=== PATIENT | male | born 1940 | race Caucasian/White ===

== ENCOUNTER 2017-05-18 15:38 | Inpatient (IN) | payer MEDICARE ==
[~2017-05-18] VITALS: Ht 175.3 cm; Wt 104.3 kg
[~2017-05-18 15:38] MED LIST: AMLODIPINE5 MG PO; ASPIRIN 8181 MG PO; ASPIRIN81 MG PO; ATORVASTATIN CA80 MG PO; BACTRIM DS1 TAB PO; BENAZEPRIL HCL20 MG PO; BENAZEPRIL10 MG PO; BENAZEPRIL20 MG PO; BENAZEPRIL40 MG OR; BLOOD GLUCOSE TEST S SC; CEPH500C57 OR; CIPROFLOXACN500 MG PO; GABAPENTIN300 MG PO; GLIPIZIDE5 M2 PO; INDOCIN50 MG/CAP PO; KEFLEX500 MG PO; LANCETS 30G30 G SC; LORTAB5 PO; MAXZIDE OR; MAXZIDE PO; MAXZIDE-2537.5 MG/TA PO; MAXZIDE-25MG1 COMBO PO; METFORMIN HCL500 M1 PO; METFORMIN500 M2 PO; METOPROL TAR25 MG PO; MONITOR SC; NORVASC5 MG OR; NYSTATIN100000 M1 PO; PERCOCET 5/325M1 TAB OR; PRAVACHOL40 MG OR; PRAVASTATIN SOD40 MG PO; TRULICITY0.75 MG/0. SC
[2017-05-24] VITALS (8 sets, daily range): BP systolic 122–144; BP diastolic 68–85
[2017-05-24] MEDS ORDERED: VICTOZA18 MG/3 ML SC (06:43)
[2017-05-24 07:27] LABS: HEMATOCRIT 39.1 % (39.0-50.0); HEMOGLOBIN 13.5 g/dl (14.0-18.0); IMMATURE GRANULOCYTES 0.2 % (0.0-1.0); MEAN CELL VOLUME 93.5 fL CALC (80.0-100.0); MEAN CORPUSCULAR HGB 32.3 pG CALC (26.0-32.0); MEAN CORPUSCULAR HGB CONC 34.5 g/L CALC (32.0-36.0); NEUT# 2.95 thou/uL (1.82-7.42); RED BLOOD COUNT 4.18 mill/uL (4.70-6.10); RED CELL DISTRI WIDTH 12.7 % (11.5-15.5)
[2017-05-24 07:58] LABS: ACT PARTIAL THROMBO TIME 26.6 SECONDS (20.0-32.5); PROTHROMBIN TIME 10.6 SECONDS (9.0-12.5)
--- NOTE | 2017-05-24 12:45 | NUR ---
FROM OR VIA BED ACCOMPANIED BY MANAN GALDAMEZ. RESPS EVEN AND UNLABORED ON O2 VIA NC. RIGHT ARM IN SLING, DRESSING TO RIGHT SHOULDER CDI. SCD'S TO BILAT LOWER EXTREMITIES. DENIES PAIN OR DISCOMFORT. ICE CHIPS OFFERED. ORIENTED TO ROOM AND CALL SYSTEM. SAFETY PRECAUTIONS REINFORCED. BED IN LOWEST POSITION WITH WHEELS LOCKED. CALL LIGHT WITHIN REACH. ENCOURGAED PT TO CALL FOR ANY NEEDS.
--- NOTE | 2017-05-24 16:00 | NUR ---
RESTING IN SEMI FOWLERS. RESPS EVEN AND UNLABORED ON O2 VIA NC. DRESSING TO RIGHT SHOULDER CDI, SLING IN PLACE TO RIGHT ARM. ICE PACK TO RIGHT SHOULDER. SCD'S TO BILAT LOWER EXTREMITIES. DENIES PAIN OR DISCOMFORT. FAMILY AT BEDSIDE. CALL LIGHT WITHIN REACH. WILL CONTINUE TO MONITOR.
--- NOTE | 2017-05-24 19:50 | NUR ---
PT RESTING IN BED WITH FAMILY AT BEDSIDE. PT DENIES ANY PAIN OR DISCOMFORT. RESP EVEN AND UNLABORED WITH O2 IN PLACE. ABD DISTENDED,SOFT; HYPOACTIVE BOWEL SOUNDS NOTED. SCD'S ON. PEDAL PULSES PALPATED BILAT. RIGHT SHOULDER DRESSING CDI; NO S&S OF INFECTION. SLING IN PLACE. IV LAC PATENT; NO REDNESS OR EDEMA NOTED. INCENTIVE SPIROMETER BROUGHT TO PT, PT EDUCATED ON USE. PT RETURNED DEMONSTRATION. SAFETY PRECAUTIONS REINFORCED. FREQUENT ROUNDS MADE. CALL LIGHT WITHIN REACH.
[2017-05-25 00:20] VITALS: BP 149/86
--- NOTE | 2017-05-25 00:30 | NUR ---
DRESSING CDI; SLING IN PLACE. PT DENIES ANY PAIN OR DISCOMFORT. RESP EVEN AND UNLABORED WITH O2 IN PLACE. IV PATENT; NO REDNESS OR EDEMA NOTED. SAFETY PRECAUTIONS REINFOCED. CALL LIGHT WITHIN REACH.
[2017-05-25 04:27] VITALS: BP 150/79
--- NOTE | 2017-05-25 04:45 | NUR ---
PT DENIES ANY PAIN OR DISCOMFORT. RIGHT SHOULDER DRESSING CDI; SLING IN PLACE. SAFETY PRECAUTIONS REINFORCED. CALL LIGHT WITHIN REACH.
[2017-05-25 05:09] LABS: HEMATOCRIT 37.1 % (39.0-50.0); HEMOGLOBIN 12.9 g/dl (14.0-18.0)
[2017-05-25 05:13] LABS: HEMATOCRIT 37.4 % (39.0-50.0); HEMOGLOBIN 12.8 g/dl (14.0-18.0); IMMATURE GRANULOCYTES 0.4 % (0.0-1.0); MEAN CELL VOLUME 94.4 fL CALC (80.0-100.0); MEAN CORPUSCULAR HGB 32.3 pG CALC (26.0-32.0); MEAN CORPUSCULAR HGB CONC 34.2 g/L CALC (32.0-36.0); NEUT# 9.74 thou/uL (1.82-7.42); RED BLOOD COUNT 3.96 mill/uL (4.70-6.10); RED CELL DISTRI WIDTH 12.7 % (11.5-15.5)
[2017-05-25 05:31] LABS: ANION GAP 18 (6-22 (CALC)); BUN 21 mg/dL (8-23); BUN/CREATININE RATIO 21 (12-20 (CALC)); CARBON DIOXIDE 21 mmol/l (22-30); CHLORIDE 105 mmol/l (95-108); GFR > 60 ML/MIN (>=60 (CALC)); GFR FOR AFR.AMER. > 60 ML/MIN (>=60 (CALC)); MAGNESIUM 1.4 mg/dL (1.6-2.3); POTASSIUM 3.8 mmol/l (3.5-5.1); SODIUM 139 mmol/l (137-146)
--- NOTE | 2017-05-25 07:00 | NUR ---
RECEIVED BEDSIDE REPORT FROM DARVIN HENDRICKSON. IN HIGH FOWLERS WATCHING TV. RESPS EVEN AND UNLABORED ON O2 VIA NC. RIGHT ARM IN SLING, DRESSING TO RIGHT SHOULDER CDI. SCD'S TO BILAT LOWER EXTREMITIES. DENIES PAIN OR DISCOMFORT. PLAN OF CARE DISCUSSED. SAFETY PRECAUTIONS REINFORCED. BED IN LOWEST POSITION WITH WHEELS LOCKED. CALL LIGHT WITHIN REACH. ENCOURAGED PT TO CALL FOR ANY NEEDS.
[2017-05-25 07:54] VITALS: BP 142/72
[2017-05-25 08:39] VITALS: BP 142/72
--- NOTE | 2017-05-25 11:00 | NUR ---
REFEUSED MAGNESIUN SULFATE 4GM IV, DOES "NOT BLANCO TO BE HERE ANOTHER 4 HOURS. GIVE ME A PILL." DENA ALVARES NOTIFIED.
--- NOTE | 2017-05-25 13:03 | NUR ---
AMBULATING IN HALLWAY WITH STEADY GAIT ACCOMPANIED BY FAMILY. TOLERATING ACTIVITY WITHOUT DIFFICULTY.
--- NOTE | 2017-05-25 13:15 | NUR ---
DR RENEE AT BEDSIDE, NEW ORDERS RECEIVED.
[2017-05-25] MEDS ORDERED: PERCOCET 10/31 COMBO PO (13:30)
--- NOTE | 2017-05-25 13:51 | NUR ---
IV site discontinued, cath intact. No edema , no redness, voices no discomfort.
--- NOTE | 2017-05-25 14:02 | NUR ---
Discharge instructions given. Patient verbalizes understanding of same. Discharged in stable condition via Wheelchair to Home with family. All belongings sent with pt.
== END 2017-05-25 14:04 | disposition home health service (06) | DRG 483 ==
LOC: MS2 05-24 06:23
PROVIDERS: Nurse Anesthetist, Certified Registered; Nurse Practitioner Family; ADMIT Orthopaedic Surgery; ATTEND Internal Medicine
PROC: 0RRJ00Z Replacement of Right Shoulder Joint with Reverse Ball and Socket Synthetic Substitute, Open Approach (ICD-10-PCS; principal; 2017-05-24)
PROC: 0LS30ZZ Reposition Right Upper Arm Tendon, Open Approach (ICD-10-PCS; 2017-05-24)
DX: M19.011 Primary osteoarthritis, right shoulder (principal); S46.211A Strain of muscle, fascia and tendon of other parts of biceps, right arm, initial encounter; E11.40 Type 2 diabetes mellitus with diabetic neuropathy, unspecified; E83.42 Hypomagnesemia; M75.121 Complete rotator cuff tear or rupture of right shoulder, not specified as traumatic; I10 Essential (primary) hypertension; I25.10 Atherosclerotic heart disease of native coronary artery without angina pectoris; M10.9 Gout, unspecified; E78.5 Hyperlipidemia, unspecified; X58.XXXA Exposure to other specified factors, initial encounter; Z95.1 Presence of aortocoronary bypass graft; Z87.891 Personal history of nicotine dependence
CPT/HCPCS: J3475

== ENCOUNTER → 2018-04-07 | Outpatient (REF) ==
[~2018-04-07] MED LIST changes: +PERCOCET 10/31 COMBO PO; +VICTOZA18 MG/3 ML SC
== END | disposition home or self-care (01) | DRG 951 ==
LOC: INF 08:53 → LAB 08:53
PROVIDERS: ATTEND Internal Medicine
DX: Z01.812 Encounter for preprocedural laboratory examination (principal)

== ENCOUNTER → 2018-04-07 | Outpatient (REF) | payer MEDICARE | END | disposition home or self-care (01) | LOC: DI 08:59 | PROVIDERS: ATTEND Internal Medicine | DX: Z01.810 Encounter for preprocedural cardiovascular examination (principal) ==

== ENCOUNTER 2020-02-23 15:14 | Inpatient (IN) | payer MEDICARE ==
[~2020-02-23] VITALS: Ht 175.3 cm; Wt 101.0 kg
[2020-02-23 16:14] LABS: HEMATOCRIT 29.8 % (39.0-50.0); HEMOGLOBIN 9.1 g/dl (14.0-18.0); IMMATURE GRANULOCYTES 0.8 % (0.0-5.0); MEAN CELL VOLUME 79.3 fL CALC (80.0-100.0); MEAN CORPUSCULAR HGB 24.2 pG CALC (26.0-32.0); MEAN CORPUSCULAR HGB CONC 30.5 g/dL CAL (32.0-36.0); NEUT# 10.8 thou/uL (1.82-7.42); RED BLOOD COUNT 3.76 mill/uL (4.70-6.10); RED CELL DISTRI WIDTH 15.9 % (11.5-15.5)
[2020-02-23 16:27] LABS: ALBUMIN 3.8 g/dL (3.2-5.0); ALKALINE PHOSPHATASE 141 u/l (38-126); ANION GAP 20 (6-22 (CALC)); BILIRUBIN, TOTAL 0.8 mg/dL (0.0-1.4); CARBON DIOXIDE 20 mmol/l (22-30); CHLORIDE 99 mmol/l (95-108); POTASSIUM 4.9 mmol/l (3.5-5.1); SODIUM 133 mmol/l (137-146); TOTAL PROTEIN 8.1 g/dL (6.3-8.2)
[2020-02-23 16:33] LABS: BUN 73 mg/dL (8-23); BUN/CREATININE RATIO 26 (12-20 (CALC)); CREATININE 2.8 mg/dL (0.7-1.3); GFR 22 ML/MIN (>=60 (CALC)); GFR FOR AFR.AMER. 27 ML/MIN (>=60 (CALC)); SGOT/AST 37 u/l (19-48)
[2020-02-23 16:35] LABS: ACT PARTIAL THROMBO TIME 30.8 SECONDS (20.0-32.5); PROTHROMBIN TIME 10.4 SECONDS (9.0-12.5)
[2020-02-23 17:57] LABS: URINE BILIRUBIN - DIPSTICK NEGATIVE (NEGATIVE); URINE BLOOD DIPSTICK NEGATIVE (NEGATIVE); URINE COLOR YELLOW; URINE GLUCOSE - DIPSTICK NEGATIVE (NEGATIVE); URINE KETONE NEGATIVE (NEGATIVE); URINE LEUK ESTERASE NEGATIVE (NEGATIVE); URINE NITRITE - DIPSTICK NEGATIVE (Negative); URINE PROTEIN - DIPSTICK NEGATIVE (NEG-TRACE); URINE UROBILINOGEN - DIPSTICK 0.2 E.U./dL (0.2)
[2020-02-23 19:37] VITALS: BP 126/48
[2020-02-24 00:30] VITALS: BP 117/66
[2020-02-24 04:25] VITALS: BP 106/60
[2020-02-24] MEDS ORDERED: LOSARTAN POTASS50 MG PO (07:49)
[2020-02-24] MEDS ORDERED: TRAMADOL HCL50 MG PO (07:49)
[2020-02-24] MEDS ORDERED: ATORVASTATIN CA80 MG PO (07:50)
[2020-02-24] MEDS ORDERED: LOPRESSOR25 MG PO (07:50)
[2020-02-24] MEDS ORDERED: GABAPENTIN100 MG PO (07:50)
[2020-02-24] MEDS ORDERED: BENAZEPRIL40 M1 PO (07:50)
[2020-02-24] MEDS ORDERED: MAXZIDE-25MG1 COMBO PO (07:51)
[2020-02-24 07:52] VITALS: BP 124/63
[2020-02-24 09:54] LABS: HEMATOCRIT 26.9 % (39.0-50.0); IMMATURE GRANULOCYTES 0.4 % (0.0-5.0); MEAN CELL VOLUME 79.6 fL CALC (80.0-100.0); MEAN CORPUSCULAR HGB 23.7 pG CALC (26.0-32.0); MEAN CORPUSCULAR HGB CONC 29.7 g/dL CAL (32.0-36.0); NEUT# 5.51 thou/uL (1.82-7.42); RED BLOOD COUNT 3.38 mill/uL (4.70-6.10); RED CELL DISTRI WIDTH 15.9 % (11.5-15.5)
[2020-02-24 10:20] LABS: BILIRUBIN, TOTAL 0.5 mg/dL (0.0-1.4); POTASSIUM 4.7 mmol/l (3.5-5.1)
[2020-02-24 10:21] LABS: CREATININE 1.5 mg/dL (0.7-1.3); TOTAL PROTEIN 6.4 g/dL (6.3-8.2)
[2020-02-24 11:08] VITALS: BP 108/61
[2020-02-24 14:37] VITALS: BP 133/70
[2020-02-24] MEDS ORDERED: ATORVASTATIN CA40 MG PO (14:37)
[2020-02-24] MEDS ORDERED: CEFDINIR300 MG PO (14:38)
== END 2020-02-24 15:06 | disposition home or self-care (01) | DRG 872 ==
LOC: ED 15:14 → MS2 18:30
PROVIDERS: Nurse Practitioner; Student in an Organized Health Care Education/Training Program; ADMIT Internal Medicine; ATTEND Internal Medicine
DX: A41.9 Sepsis, unspecified organism (principal); N17.9 Acute kidney failure, unspecified; E87.2 Acidosis; M25.462 Effusion, left knee; D64.9 Anemia, unspecified; R65.20 Severe sepsis without septic shock; I10 Essential (primary) hypertension; E11.40 Type 2 diabetes mellitus with diabetic neuropathy, unspecified; E78.5 Hyperlipidemia, unspecified; E78.00 Pure hypercholesterolemia, unspecified; M10.9 Gout, unspecified; Z20.822 Contact with and (suspected) exposure to COVID-19; Z79.891 Long term (current) use of opiate analgesic; Z79.899 Other long term (current) drug therapy; Z88.7 Allergy status to serum and vaccine; Z95.1 Presence of aortocoronary bypass graft; Z98.42 Cataract extraction status, left eye; Z98.41 Cataract extraction status, right eye; Z96.1 Presence of intraocular lens
CPT/HCPCS: Q0138

== ENCOUNTER 2020-03-04 13:59 | Inpatient (IN) | payer MEDICARE ==
[~2020-03-04] VITALS: Ht 175.3 cm; Wt 107.7 kg
[~2020-03-04 13:59] MED LIST changes: +ATORVASTATIN CA40 MG PO; +BENAZEPRIL40 M1 PO; +CEFDINIR300 MG PO; +GABAPENTIN100 MG PO; +LOPRESSOR25 MG PO; +LOSARTAN POTASS50 MG PO; +TRAMADOL HCL50 MG PO
--- NOTE | 2020-03-04 14:00 | NUR ---
PT TO ROOM VIA EMS.
[2020-03-04 14:32] LABS: BASO% 0 % (0-3); EOS% 0 % (0-8); HEMATOCRIT 28.6 % (39.0-50.0); HEMOGLOBIN 8.7 g/dl (14.0-18.0); IMMATURE GRANULOCYTES 0.2 % (0.0-5.0); LYMPH% 7 % (15-41); MEAN CELL VOLUME 79.7 fL CALC (80.0-100.0); MEAN CORPUSCULAR HGB 24.2 pG CALC (26.0-32.0); MEAN CORPUSCULAR HGB CONC 30.4 g/dL CAL (32.0-36.0); MONO% 10 % (2-13); NEUT% 82 % (42-76); PLATELET COUNT 528 thou/uL (130-400); RED BLOOD COUNT 3.59 mill/uL (4.70-6.10); RED CELL DISTRI WIDTH 17.1 % (11.5-15.5)
--- NOTE | 2020-03-04 14:34 | NUR ---
RESTING QUIETLY. CALL [facility] AVAILABLE.
[2020-03-04 14:54] LABS: CHLORIDE 99 mmol/l (95-108); CREATININE 1.2 mg/dL (0.7-1.3); GFR 58 ML/MIN (>=60 (CALC)); GFR FOR AFR.AMER. > 60 ML/MIN (>=60 (CALC)); POTASSIUM 4.5 mmol/l (3.5-5.1); SODIUM 136 mmol/l (137-146); TOTAL PROTEIN 6.6 g/dL (6.3-8.2)
[2020-03-04 14:59] LABS: ALKALINE PHOSPHATASE 179 u/l (38-126); ANION GAP 15 (6-22 (CALC)); BILIRUBIN, TOTAL 0.9 mg/dL (0.0-1.4); BUN 18 mg/dL (8-23); BUN/CREATININE RATIO 15 (12-20 (CALC)); CARBON DIOXIDE 27 mmol/l (22-30); SGOT/AST 50 u/l (19-48)
--- NOTE | 2020-03-04 16:08 | NUR ---
PHYSICIAN AT BEDSIDE. PATIENT CALM. NO C/O
--- NOTE | 2020-03-04 17:00 | NUR ---
AWAITING ADMISSION. NO C/O AT PRESENT.
--- NOTE | 2020-03-04 18:43 | NUR ---
REPORT TO RUDOLPH FERNANDEZ IN SBAR FORMAT.
[2020-03-04 18:45] VITALS: BP 118/57
--- NOTE | 2020-03-04 18:58 | NUR ---
TRANSFERRED TO [place] ROOM 271 VIA STRETCHER, STABLE UPON ARRIVAL. IV SITE INTACT
--- NOTE | 2020-03-04 19:45 | NUR ---
RECEIVED REPORT FOR PT FROM RUDOLPH FERNANDEZ. PT ARRIVED TO THE FLOOR JUST PRIOR TO SHIFT CHANGE. PT ORIENTED TO UNIT, ROOM, CALL [facility]OPE[facility], LIGHTS, TV. ICE WATER PROVIDED. CALL [facility] WITHIN REACH. AGREES TO CALL PRN.
--- NOTE | 2020-03-04 20:02 | NUR ---
PHYSICAL ASSESMENT COMPLETE. PT CURRENTLY DENIES PAIN OR DISCOMFORT. SCHEDULED MEDICATIONS AND PRN MEDICATION ADMINISTERED, SEE E-MAR. PT DENIES ANY NEEDS AT THIS TIME. PLAN OF CARE REVIEWED, PT DENIES QUESTIONS, VERBALIZES UNDERSTANDING. ITEMS WITHIN REACH, BED LOCKED IN LOW POSITION W/ BEDRAILS UP X2. CALL [facility] WITHIN REACH, AGREES TO CALL PRN.
--- NOTE | 2020-03-05 00:01 | NUR ---
PT LAYING IN BED WITH EYES CLOSED, APPEARS TO BE SLEEPING, APPEARS COMFORTABLE AND IN NO DISTRESS. RESPIRATIONS REGULAR AND UNLABORED. ITEMS REMAIN WITHIN REACH, CALL [facility] REMAINS WITHIN REACH. BED REMAINS LOCKED AND IN LOW POSITION WITH BEDRAILS UP X2. WILL CONTINUE TO MONITOR.
[2020-03-05 03:48] VITALS: BP 131/71
--- NOTE | 2020-03-05 04:01 | NUR ---
PT RESTING IN BED, NO SIGNS OF DISTRESS NOTED, RESP EVEN AND UNLABORED. PT VOICES NO NEEDS OR COMPLAINTS AT THIS TIME. CALL LIGHT IN REACH, CONTINUE TO MONITOR.
[2020-03-05 07:53] VITALS: BP 123/69
--- NOTE | 2020-03-05 08:26 | NUR ---
PT note Patient is screened for intervention and he would benefit from PT consult if medical agrees
--- NOTE | 2020-03-05 09:00 | NUR ---
PT AWAKE, ALERT, ORIENTED X 3. LUNGS CLEAR, RA. PT'S LEFT KNEE IS PAINFUL AND SOMEWHAT SWOLLEN. PEDAL EDEMA BILATERALLY AT 2+.
--- NOTE | 2020-03-05 15:15 | NUR ---
S: JYOTHI PADRON is a 79 M who presents with knee pain/effusion. All medications in patient's chart were reviewed. O: VS: BP 123/69 mmHg, P 75 bpms, RR 18 breaths/min, T 97.6 W 98 kg, HT 69 in, Scr 1.2 mg/dl, CrCl 69.2 ml/min A: Cultures are pending. P: Patient is on Rocephin 2g IV q24h. Vancomycin ordered for pharmacy to dose. Start Vancomycin 1g IV Q12H. Vancomycin trough is drawn before the 4th dose on 03/07 @ 0230. Vancomycin goal trough is between 10-20 mcg/ml. Pharmacy will follow and or advise on antibiotics use as needed.
--- NOTE | 2020-03-05 15:53 | NUR ---
PT HAS BEEN DOWNSTAIRS FOR LEFT KNEE ARTHROCENTESIS, TOLERATED WELL. LATER, PT WENT TO MRI. TRAMADOL PROVIDED FOR PAIN RELIEF.
[2020-03-05 16:30] VITALS: BP 118/72
--- NOTE | 2020-03-05 17:23 | NUR ---
PT TO MRI AND BACK THIS AFTERNOON. PT WITH SOME DISCOMFORT TO LEFT KNEE, PROVIDED ULTRAM WHICH HELPED CONSIDERABLY.
[2020-03-05 19:00] VITALS: BP 128/76
[2020-03-06 03:38] VITALS: BP 112/63
[2020-03-06 06:06] LABS: HEMATOCRIT 29.6 % (39.0-50.0); MEAN CORPUSCULAR HGB 24.3 pG CALC (26.0-32.0); MEAN CORPUSCULAR HGB CONC 30.4 g/dL CAL (32.0-36.0); RED BLOOD COUNT 3.7 mill/uL (4.70-6.10); RED CELL DISTRI WIDTH 17.1 % (11.5-15.5)
[2020-03-06 06:44] LABS: ANION GAP 15 (6-22 (CALC)); BUN 24 mg/dL (8-23); BUN/CREATININE RATIO 24 (12-20 (CALC)); CARBON DIOXIDE 23 mmol/l (22-30); CHLORIDE 101 mmol/l (95-108); GFR > 60 ML/MIN (>=60 (CALC)); GFR FOR AFR.AMER. > 60 ML/MIN (>=60 (CALC)); MAGNESIUM 1.9 mg/dL (1.6-2.3); POTASSIUM 4.4 mmol/l (3.5-5.1); SODIUM 134 mmol/l (137-146)
[2020-03-06 07:34] VITALS: BP 127/61
--- NOTE | 2020-03-06 07:34 | NUR ---
PT LAYING IN BED. A&O X3. NO DISTRESS NOTED. PT DENIES ANY PAIN AT THIS TIME, 0/10 . "LT KNEE LOOKS BETTER COMPARED TO YESTERDAY" PER PT. NO REDNESS NOTED AT THIS TIME. ASSESSMENT COMPLETED. DISCUSSED POC. CALL LIGHT IN REACH. CONTINUE TO MONITOR.
--- NOTE | 2020-03-06 08:56 | NUR ---
DR CUNHA AND Lan AYOUB AUTOMATION AND CONTROLS MANAGER AT BEDSIDE DISCUSSING POC
--- NOTE | 2020-03-06 11:50 | NUR ---
PT SITTING IN BED WATCHING TV. NO DISTRESS OR NEEDS. CALL LIGHT LEFT WITHIN REACH.
[2020-03-06 15:00] VITALS: BP 118/55
--- NOTE | 2020-03-06 16:50 | NUR ---
PT SITTING IN BED WATCHING TV. NO DISTRESS NOTED. CALL LIGHT WITHIN REACH.
[2020-03-06 18:35] VITALS: BP 135/72
--- NOTE | 2020-03-06 19:35 | NUR ---
RECEIVED CHANGE OF SHIFT REPORT FROM LORENZO, CARE OF PATIENT ASSUMED.
--- NOTE | 2020-03-06 20:00 | NUR ---
PT A&O X 3 LAYING IN BED, WATCHING TV. ASSESSMENT COMPLETE, POC DISCUSSED. NO S/SX OF DISCOMFORT OR DISTRESS OBSERVED AT THIS TIME. PT IS REQUESTING A SNACK, PAIN MED & SLEEPING PILL WITH 2100 MEDS- WILL MEDICATED PER MD ORDERS. ALL SAFETY MEASURE IN PLACE, BED IN LOWEST POSITION WITH WHEELS LOCKED AND UPPER SIDE RAILS UP X 2 AND CALL LIGHT WITHIN REACH. PT INSTRUCTED TO CALL FOR ANY NEEDS/ASSISTANCE. WILL CONTINUE TO MONITOR.
--- NOTE | 2020-03-07 | NUR ---
PT IS LAYING IN BED TRYING TO SLEEP BUT UNABLE TO, DENIES HAVING ANY PAIN OR DISCOMFORT AT THIS TIME BUT AFTER FURTHER CONVERSING WITH PT- IT APPEARS HE IS ANXIOUS/ WORRIED ABOUT HIS . HE IS HER CAREGIVE AND SHE IS AT HOME HOME WITH THEIR SON BUT SHE HAS A H/O DEMENTIA AND HE IS JUST WORRIED ABOUT HER AND WANTS TO BE HOME WITH HER. PROVIDED PT WITH EMOTIONAL SUPPORT AND ENCOURGED HIM TO GET SOME REST. WILL CONTINUE TO MONITOR.
[2020-03-07 02:46] LABS: HEMATOCRIT 28.7 % (39.0-50.0); HEMOGLOBIN 8.5 g/dl (14.0-18.0); IMMATURE GRANULOCYTES 0.6 % (0.0-5.0); MEAN CELL VOLUME 80.6 fL CALC (80.0-100.0); MEAN CORPUSCULAR HGB 23.9 pG CALC (26.0-32.0); MEAN CORPUSCULAR HGB CONC 29.6 g/dL CAL (32.0-36.0); NEUT# 7.92 thou/uL (1.82-7.42); RED BLOOD COUNT 3.56 mill/uL (4.70-6.10); RED CELL DISTRI WIDTH 17.2 % (11.5-15.5)
--- NOTE | 2020-03-07 03:00 | NUR ---
PT CALLED FOR ASSISTANCE AFTER NOTICING A SMALL AMOUNT OF BLOOD ON URINAL, PT DENIES NOTICING ANY BLEEDING PRIOR AND DENIES ANY PAIN, BURNING, OR FREQUENCY WITH URINATION AT THIS TIME, NO OPEN AREAS OR ACTIVE BLEED NOTED DURING INSPECTION, PT BELIEVES HE MAY HAVE IRRIATED OR CAUSED TRAMA TO THE AREA WITH THE EDGE OF THE URINAL WHILE VOIDING, WILL MONITOR AREA. .
[2020-03-07 03:05] LABS: BUN 27 mg/dL (8-23); GFR FOR AFR.AMER. > 60 ML/MIN (>=60 (CALC))
[2020-03-07 03:06] LABS: ALBUMIN 2.7 g/dL (3.2-5.0); ALKALINE PHOSPHATASE 177 u/l (38-126); ANION GAP 14 (6-22 (CALC)); BUN/CREATININE RATIO 27 (12-20 (CALC)); CARBON DIOXIDE 21 mmol/l (22-30); CHLORIDE 104 mmol/l (95-108); GFR > 60 ML/MIN (>=60 (CALC)); MAGNESIUM 1.9 mg/dL (1.6-2.3); SGOT/AST 37 u/l (19-48); SODIUM 135 mmol/l (137-146)
[2020-03-07 03:11] LABS: BILIRUBIN, TOTAL 0.3 mg/dL (0.0-1.4)
[2020-03-07 04:20] VITALS: BP 115/68
--- NOTE | 2020-03-07 04:26 | NUR ---
OBSERVED PT VOID, NO BLOOD OBSERVED, NO C/O PAIN , BURNING OR FREQUENCY. NO OTHER NEEDS OR CONCERNS EXPRESSED AT THIS TIME, PT JUST WANTS TO SLEEP, WILL CONTINUE TO MONITOR.
[2020-03-07 07:04] VITALS: BP 130/62
--- NOTE | 2020-03-07 07:04 | NUR ---
PT LAYING IN BED. A&O X3. NO DISTRESS NOTED. PT C/O OF PAIN WHEN TRYING TO URINATE, PT REPORTS BLOOD WHEN URINATING. UPON INSPECTION OF TOILET BLOOD NOTED, BRIGHT READ. PENIS INSPECTED, NO VISIBLE CUTS OR INJURY NOTED. MD TO BE NOTIFIED. LT KNEE DECREASED IN SWELLING, PT DENIES ANY KNEE PAIN AT THIS TIME. ASSESSMENT COMPLETED. DISCUSSED POC. CALL LIGHT LEFT WITHIN REACH.
--- NOTE | 2020-03-07 08:08 | NUR ---
BLADDER SCAN PERFORMED PER MD ORDERS, RESULTING IN 60 ML OF URINE RISIDUAL. AND Lan AYOUB APRN NOTIFIED OF RESULTS.
--- NOTE | 2020-03-07 08:27 | NUR ---
DR CUNHA AND Lan AYOUB APRN AT BEDSIDE
--- NOTE | 2020-03-07 09:58 | NUR ---
RADHA BERMUDEZ AT BEDSIDE OBTAINING EKG
--- NOTE | 2020-03-07 10:40 | NUR ---
SULLIVAN 16F CATHETER PLACED BY Ana BENNETT RN. PT TOLERATED WELL. URINE SAMPLE OBTAINED.
--- NOTE | 2020-03-07 10:46 | NUR ---
DR OTERO CONSULT IN PROGRESS
[2020-03-07 11:10] LABS: URINE BILIRUBIN - DIPSTICK NEGATIVE (NEGATIVE); URINE BLOOD DIPSTICK LARGE (NEGATIVE); URINE COLOR YELLOW; URINE GLUCOSE - DIPSTICK NEGATIVE (NEGATIVE); URINE KETONE NEGATIVE (NEGATIVE); URINE PROTEIN - DIPSTICK >=300 mg/dL (NEG-TRACE); URINE SPECIFIC GRAVITY 1.025; URINE UROBILINOGEN - DIPSTICK 0.2 E.U./dL (0.2)
[2020-03-07 11:12] LABS: URINE LEUK ESTERASE MODERATE (NEGATIVE); URINE NITRITE - DIPSTICK POSITIVE (Negative)
[2020-03-07 11:17] LABS: URINE RBC TNTC RBC/hpf (0-5); URINE WBC TNTC WBC/hpf (0-5)
--- NOTE | 2020-03-07 11:29 | NUR ---
PT REPORTS TO BE FEELING MUCH BETTER, AFEBRILE. PT SITTING UP IN CHAIR. NO CHILLS NOTED. SULLIVAN CATH DRAINING GRAVITY. CALL LIGHT LEFT WITHIN REACH.
--- NOTE | 2020-03-07 12:48 | NUR ---
PT TAKEN TO CT VIA WC
[2020-03-07 15:05] VITALS: BP 102/69
--- NOTE | 2020-03-07 17:01 | NUR ---
PT SLEEPING IN BED. NO DISTRESS NOTED. CALL LIGHT WITHIN REACH.
[2020-03-07 19:09] VITALS: BP 128/74
[2020-03-07 20:30] VITALS: BP 118/70
--- NOTE | 2020-03-07 20:48 | NUR ---
RECEIVED REPORT FOR THIS PT AND IN BED WITH EYES OPEN. TREMORS AND STATING HE FEELS CHILLED. PT NOTED TREMBLING AND HR 143. LABORED BREATHIG NOTED AT 36 BREATHS PER MINUTE. PT EDUCATED TO TAKE SLOW DEEP BREATHS AND PT COOPERATIVE. BLOOD SUGAR 571 AND O2 SAT 96% ROOM AIR. ANITHA AYOUB BEAM BUILDER HELPER HERE AT FACILY AT BEDSIDE AND NEW ORDERS FOR REGULAR INSULIN IV WELL GAVE TYLENOL ORDERED FOR TEMPT 99.2TP. STAT GLUCOSE ORDERED AND BLOOD CULTURES COLLECTED. IN BED WITH EYES OPEN. WILL CONTINUE TO OBSERVE
--- NOTE | 2020-03-07 21:40 | NUR ---
MADE AWARE OF LACTIC ACID OF 8.2. NEW ORDER FOR 1 LITER NORMAL SALINE 0.9% BOLUS NOW. ORDERS NOTED.
[2020-03-07 21:41] VITALS: BP 105/68
[2020-03-08 00:15] VITALS: BP 105/63
--- NOTE | 2020-03-08 00:55 | NUR ---
PT IN BED WITH EYES CLOSED. NO RESPIRATORY DISTRESS NOTED. RECHECKED ACCUCHECK AND 130.PT IS EASILY AROUSED. RECEIVED 1L BOOLUS 0.9% NS FOR LACTIC ACID OF 8.2.RECHECKED LACTIC ACID LEVEL AND 4.8. GAVE 2ND LITER 0.9% NS PER MD ORDER. HOB ELEAVED. CALLLIGHT WITHIN REACH. WILL CONTINUE TO OBSERVE.
[2020-03-08 02:00] VITALS: BP 110/66
--- NOTE | 2020-03-08 02:00 | NUR ---
PT IN BED WITH EYES CLOSED. NO S/S OF DISTRESS NOTED. EASILY AROUSED. SKIN COLOR NORMAL AND CAPILLARYREFILLESS THAN 3. PT STATES HE FEELS BETTER. AFEBRILE.NO S/S OF HYPO/HYPERGLYCEMIA. SULLIVAN DRAINING VALENTIN COLORED URINE WITH SEDIMENT NOTED AND ODOR. NORMAL SALINE RUNNING AT 75ML/HR AND TOLERATING WELL. CALL LIGHT WITHIN REACH. WILL CONTINUE TO OBSERVE.
[2020-03-08 04:05] VITALS: BP 107/62
--- NOTE | 2020-03-08 04:52 | NUR ---
PTIN BED WITH NO S/S OF DISTRESS NOTED. RESPIRATION EVEN AND NON LABORED. NONPRODUCTIVE COUGH NOTED. LUNGS SOUNDS ARE DIMINISHED. PT REPOSITNED IN BED. NORMAL SALINE RUNNING AT 75ML/HR AND TOLERATING WELL. CALLLIGTH WITHIN REACH. WILL CONTINUE TO OBSERVE
[2020-03-08 05:35] LABS: HEMOGLOBIN 7.4 g/dl (14.0-18.0); MEAN CELL VOLUME 81.7 fL CALC (80.0-100.0); MEAN CORPUSCULAR HGB 24.2 pG CALC (26.0-32.0); MEAN CORPUSCULAR HGB CONC 29.6 g/dL CAL (32.0-36.0); RED BLOOD COUNT 3.06 mill/uL (4.70-6.10); RED CELL DISTRI WIDTH 17.5 % (11.5-15.5)
[2020-03-08 05:46] LABS: ANION GAP 10 (6-22 (CALC)); BUN 26 mg/dL (8-23); BUN/CREATININE RATIO 24 (12-20 (CALC)); CARBON DIOXIDE 23 mmol/l (22-30); CHLORIDE 105 mmol/l (95-108); CREATININE 1.1 mg/dL (0.7-1.3); GFR > 60 ML/MIN (>=60 (CALC)); GFR FOR AFR.AMER. > 60 ML/MIN (>=60 (CALC)); MAGNESIUM 1.8 mg/dL (1.6-2.3); POTASSIUM 4.6 mmol/l (3.5-5.1); SODIUM 133 mmol/l (137-146)
[2020-03-08 07:48] VITALS: BP 126/58
--- NOTE | 2020-03-08 07:48 | NUR ---
RECIEVED REPORT FROM RUDOLPH KHAN. PT RESTING IN SEMI FOWLERS POSITION UPON ENTERING ROOM. INTRODUCED SELF TO PT AND DISCUSSED POC. PT IS A/O X3. ASSSESSMENT AND VITALS COMPLETED. RESPIRATIONS ARE EVEN AND UNLABORED ON 2L NC, O2 SAT 96%. HEART RHYTHM NORMAL. BOWEL SOUNDS ARE ACTIVE IN ALL QUADRANTS, LAST REPORTED BM 03/07/20. RADIAL AND PEDAL PULSES STRONG. #20G IN LACC INFUSING WITH NORMAL SALINE PER ORDERED, SITE APPEARS HEALTHY AND PATENT.SKIN INTACT WITH NO BREAK DOWN NOTED. TRACE EDEMA TO BLE NOTED.SULLIVAN CATHATER IN PLACE, MINIMAL VALENTIN CLOUDY URINE NOTED. TUBING UNOBSTRUCTED. PT DENIES OF ANY PAINS OR DISCOMFORTS. WILL CONTINUE TO MONITOR.
--- NOTE | 2020-03-08 08:32 | NUR ---
DR RENEE AT BEDSIDE DICUSSING POC
--- NOTE | 2020-03-08 10:31 | NUR ---
INFECTION DISEASE CONSULT COMPLETED.
--- NOTE | 2020-03-08 10:51 | NUR ---
S: JYOTHI PADRON is a 79 M who presents with sepsis. He has a history of diabetes, hypertension, hyperlipidemia, neuropathy, gout. All medications in patient's chart were reviewed. O: VS: BP 126/58 mmHg, P 69 bpm, RR 18 breaths per min,T 97.4 F W 98.033 kg, HT 69 in, Scr= 1.1 mg/dL, CrCl= 62 ml/min A: Blood culture is pending. Urine culture shows Escherichia coli, sensitivity is pending. P: Patient is on cefepime 2 g Q12H. Vancomycin ordered for pharmacy to dose. Start Vancomycin 1 g IV Q12H. Vancomycin trough is drawn before the 4th dose on 03/09/20 @ 2030. Vancomycin goal trough is between 15-20 mcg/ml. Pharmacy will follow and or advise on antibiotics use as needed.
--- NOTE | 2020-03-08 11:39 | NUR ---
PT RESTING IN SEMI FOWLERS POSITION. RESPIRATIONS ARE EVEN AND UNLABORED ON 2L NC. NO SIGNS OF DISTRESS NOTED. SULLIVAN CATHATER IN PLACE, TUBING PATENT. ANTIBIOTICS INFUSING WITH EASE, SITE REAMINS HEALTHY AND PATENT. PT DENIES OF ANY PAINS OR DISCOMFORTS. ALL SAFETY PRECAUTIONS ARE IN PLACE WITH CALL LIGHT IN REACH. WILL CONTINUE TO MONITOR.
[2020-03-08 15:22] VITALS: BP 118/60
--- NOTE | 2020-03-08 15:28 | NUR ---
BREW HOUSE SUPERVISOR AT BEDSIDE
--- NOTE | 2020-03-08 16:58 | NUR ---
PT RESTING IN SEMI FOWLERS POSITION. RESPIRATIONS ARE EVEN AND UNLABORED. IVF INFUSING PER ORDER, SITE APPEARS HEALTHY AND PATENT. PT COMPLAINS OF 5/10 PAIN IN LEFT KNEE, ULTRAM TO BE ADMINISTERED. SULLIVAN CATHATER IN PLACE, TUBING APPEARS PATENT. PT DENIES OF ANY OTHER NEEDS AT THIS TIME. ALL SAFETY PRECAUTIONS ARE IN PLACE WITH CALL LIGHT IN REACH. WILL CONTINUE TO MONITOR
[2020-03-08 20:00] VITALS: BP 105/60
--- NOTE | 2020-03-08 20:00 | NUR ---
REPORT RECEIVED. ASSESSMENT COMPLETE. SAFETY MEASURES IN PLACE. CALL LIGHT WITHIN REACH.
--- NOTE | 2020-03-09 | NUR ---
PT LAYING IN BED SLEEPING, NO S/SX OF DISTRESS OR DISCOMFORT OBSERVED AT THIS TIME; RESPIRATIONS EVEN AND NON-LABORED ON ROOM AIR. SAFETY MEASURES IN PLACE, CALL LIGHT WITHIN REACH. WILL CONTINUE TO MONITOR.
[2020-03-09 04:00] VITALS: BP 115/60
[2020-03-09 05:52] LABS: ANION GAP 10 (6-22 (CALC)); BUN 26 mg/dL (8-23); BUN/CREATININE RATIO 28 (12-20 (CALC)); CARBON DIOXIDE 24 mmol/l (22-30); CHLORIDE 103 mmol/l (95-108); CREATININE 0.9 mg/dL (0.7-1.3); GFR > 60 ML/MIN (>=60 (CALC)); GFR FOR AFR.AMER. > 60 ML/MIN (>=60 (CALC)); POTASSIUM 4.5 mmol/l (3.5-5.1); SODIUM 132 mmol/l (137-146)
--- NOTE | 2020-03-09 07:45 | NUR ---
STOOL SAMPLE OBTAINED
--- NOTE | 2020-03-09 08:07 | NUR ---
RCIEVED REPORT FROM EMEKA CARUSO. PT RESTING IN SEMI FOWLERS POSITION UPON ENTERING ROOM. INTRODUCED SELF TO PT AND DICUSSED POC. PT IS A/O X3. ASSESSMENT AND VITALS COMPLETED. RESPIRATIONS ARE EVEN AND UNLABORED ON ROOM AIR. HEART RHYTHM IS NORMAL. BOWEL SOUNDS ARE ACTIVE IN ALL QUADRANTS, LAST REPORTED BM 03/09/20. RADIAL AND PEDAL PULSES ARE STRONG.#20G IN LAC INFUSING WITH NS PER ORDER, SITE APPEARS HEALTHY AND PATENT. SKIN IS WARM AND INATCT WITH NO BREAK DOWN NOTED. SULLIVAN CATHATER IN PLACE. TUBING PATENT. PT DENIES OF ANY PAINS OR DISCOMFORTS AT THIS TIME. ALL SAFETY PRECAUTIONS ARE IN PLACE WITH CALL LIGHT IN REACH. ENCOURAGED PT TO CALL FOR ASSISTANCE IF NEED. PT VERBALIZED UNDERSTANDING. WILL CONTINUE TO MONITOR
[2020-03-09 09:12] VITALS: BP 116/50
--- NOTE | 2020-03-09 11:14 | NUR ---
DR DELGADO AT BEDSIDE
--- NOTE | 2020-03-09 12:02 | NUR ---
PT RESTING IN SEMI FOWLERS POSITION. RESPIRATIONS ARE EVEN AND UNLABORED ON ROOM AIR, SAT 95%. IVF INFUSING PER ORDER, SITE APPEARS HEALTHY AND PATENT. PT DENIES OF ANY PAINS OR NEEDS. ALL SAFETY PRECAUTIONS ARE IN PLACE WITH CALL LIGHT IN REACH. WILL CONTINUE TO MONITOR.
--- NOTE | 2020-03-09 14:43 | NUR ---
NEW #20G LAC STARTED. PT TOELRATED WELL. #20G IN RAC REMOVED WITH CATHATER STILL INTACT. PT COMPLAINS OF 10/10 PAIN IN ABD, ULTRAM ADMINISTERED. PT TOLERATED WELL
--- NOTE | 2020-03-09 15:55 | NUR ---
PT COMPLAINS OF BURNING IN ABD. PT STATES " I HELPS WHEN I PUSH DOWN." BLADDER SCAN COMPLETED, RESULTING IN 37. ULTRAM ADMINISTERED, PT STATES IT HAD HELPED. NOTFIED. ORDER FOR PROTONIX 40 MG. WAITING FOR VERIFICATION
[2020-03-09 17:19] VITALS: BP 115/68
--- NOTE | 2020-03-09 17:35 | NUR ---
FINAL STOOL SAMPLE COLLECTED
--- NOTE | 2020-03-09 19:15 | NUR ---
REPORT RECEIVED. ASSESSMENT COMPLETE. SAFETY MEASURES IN PLACE. CALL LIGHT WITHIN REACH.
[2020-03-09 19:41] VITALS: BP 123/68
[2020-03-10] VITALS (9 sets, daily range): BP systolic 86–176; BP diastolic 50–134
--- NOTE | 2020-03-10 | NUR ---
PT LAYING IN BED RESTING, NO S/SX OF DISTRESS OR DISCOMFORT OBSERVED AT THIS TIME; RESPIRATIONS EVEN AND NON-LABORED ON 2L/MIN VIA NC. SAFETY MEASURES IN PLACE, CALL LIGHT WITHIN REACH. WILL CONTINUE TO MONITOR.
--- NOTE | 2020-03-10 02:30 | NUR ---
PT CALLED VIA CALL LIGHT TO REQUEST PAIN MED, UPON ENTERING ROOM OBSERVED PT EXPERIENCING S/SX OF RESPIRAPTORY DISTRESS. PT C/O SOB, BREATHING IS LABORED WITH USE OF ACCESSORY MUSCLE AND GASPING FOR AIR WHILE ATTEMPTING TO GET HIS WORDS OUT, PT WAS ALSO DIAPHORIC, SHAKING AND C/O CHILLS. RE- POSITIONED PT TO HIGH CARBALLO. VITAL SIGNS: T 97.8 BP 176/134 HR 130 RR 24 O2 SAT 89% ON 2L OXYGEN INCREASED FROM 2L TO 3L/MIN VIA NC. NEW ONSET OF COUGH & LOW URINARY OUTPUT APPROX 42ML/HR NOTED, IV FLUIDS DECREASED FROM 75ML/HR URINARY OUTPUT OF AN ESTAMATED 42ML/HR NOTED WELL, IV FLUIDS DECREASED FROM 75ML/HR TO KVO. BLOOD SUGAR CHECKED TO R/O GLYCEMIC EPISODE- RESULTS 198. PT GIVEN MORPHINE 2 MG IV & LORTAB PER MD ORDERS/ MAR FOR TREATMENT OF PAIN. STAT EKG ORDERED & OBTAIN- EKG SHOWED SINUS TACH WITH HR OF 126. DR DELGADO NOTIFED OF EPISODE- ORDERS GIVEN FOR REPEAT BLOOD CX X 2, CXR NOW, AND LASIX 20 MG IV NOW, AND MONITOR PT. VS RECHECKED BP 165/98 HR 118 RR 20 O2 SATS 96%. ANTERIOR LUNG SOUNDS CLEAR THROUGHOUT AND RESPIRATORY EFFORT HAS DECREASED TO NON-LABORED, PT STATED HE IS FEELING BETTER. SAFETY MEASURE IN PLACE, CALL LIGHT WITHIN REACH, WILL CONTINUE TO MONITOR.
--- NOTE | 2020-03-10 02:35 | NUR ---
RT AT BEDSIDE TO OBTAIN EKG.
--- NOTE | 2020-03-10 02:45 | NUR ---
XRAY AT BED SIDE TO OBTAIN CXR.
--- NOTE | 2020-03-10 04:05 | NUR ---
PT IS NOW FEBRILE TEMP 101.2, TYELNOL ADMINISTERED PER ORDERS/ MAR.
[2020-03-10 05:22] LABS: HEMATOCRIT 29.6 % (39.0-50.0); HEMOGLOBIN 8.9 g/dl (14.0-18.0); IMMATURE GRANULOCYTES 3.8 % (0.0-5.0); MEAN CELL VOLUME 80.2 fL CALC (80.0-100.0); MEAN CORPUSCULAR HGB 24.1 pG CALC (26.0-32.0); MEAN CORPUSCULAR HGB CONC 30.1 g/dL CAL (32.0-36.0); NEUT# 8.57 thou/uL (1.82-7.42); RED BLOOD COUNT 3.69 mill/uL (4.70-6.10); RED CELL DISTRI WIDTH 17.6 % (11.5-15.5)
[2020-03-10 05:44] LABS: ANION GAP 12 (6-22 (CALC)); BUN 27 mg/dL (8-23); BUN/CREATININE RATIO 26 (12-20 (CALC)); CARBON DIOXIDE 20 mmol/l (22-30); CHLORIDE 105 mmol/l (95-108); GFR > 60 ML/MIN (>=60 (CALC)); GFR FOR AFR.AMER. > 60 ML/MIN (>=60 (CALC)); POTASSIUM 4.5 mmol/l (3.5-5.1); SODIUM 132 mmol/l (137-146)
--- NOTE | 2020-03-10 07:47 | NUR ---
RECIEVED REPORT FROM EMEKA DOWNING. PT RESTING IN SEMI FOWLERS POSITION UPON ENTERING ROOM. INTRODUCED SELF TO PT AND DISCUSSED POC. PT IS A/O X3 BUT DROWSY. ASSESSESSMENT AND VITALS COMPLETED.TEMP. 99.0, TYLENOL NOT YET DUE. BP 86/57, HR 109, O2 93% ON 3L NC. RESPIRATIONS ARE SHALLOW. LUNG SOUNDS CLEAR. HEART RHYTHM NORMAL. BOWEL SOUNDS ARE ACTIVE IN ALL QUADRANTS, LAST REPORTED BM 03/09/20. RADIAL PULSES STRONG. PEDAL PULSES WEAK. #20G IN RAC INFUSING WITH IVF PER ORDER, SITE APPEARS HEALTHY AND PATENT. SKIN IS COOL AND INTACT. PT APPEARS PALE AND DIAPHERETIC. ACCU CHECK RUSULTING IN 213, COVERAGED ADMINISTERED. SULLIVAN CATHATER IN PLACE, 150 OF CLEAR YELLOW URINE EMPTIED. TUBE APPEARS PATENT. PT DENIES OF ANY PAINS OR DISCOMFORTS AT THIS TIME.ALL SAFETY PRECAUTIONS ARE IN PLACE WITH CALL LIGHT IN REACH. WILL CONTINUE TO MONITOR.
--- NOTE | 2020-03-10 07:50 | NUR ---
JORGE LUIS LAZARO NOTIFIED OF PT STATUS. NO NEW ORDERS OBTAINED. WILL CONTINUE TO MONITOR
--- NOTE | 2020-03-10 10:26 | NUR ---
REASSESSMENT OF BP RESULTING IN 97/67, HR 87. PT APPEARS LESS PALE AND DIAPHERETIC. RESPIRATIONS ARE SHALLOW, SAT 95% ON 3L NC. PT DENIES OF ANY PAINS OR DISCOMFORTS. SULLIVAN CATHATER REMAINS IN PLACE. WILL CONTINUE TO MONITOR
--- NOTE | 2020-03-10 10:28 | NUR ---
DR DELGADO AT BEDSIDE DISCUSSING POC WITH PT
--- NOTE | 2020-03-10 12:54 | NUR ---
PT SLEEPING IN SEMI FOWLERS POSITION. REPSIRATIONS ARE EVEN AND UNLABORED WITH NO DISTRESS NOTED. IVF INFUSING PER ORDER, SITE APPEARS HEALTHY AND PATENT. SULLIVAN CATHATER IN PLACE, TUBING UNKINKED FLOWING WITH GRAVITY. NO SIGNS OF ANY PAINS OR DISCOMFORTS ALL SAFTEY PRECAUTIONS ARE IN PLACE. WILL CONTINUE TO MONITOR.
--- NOTE | 2020-03-10 16:03 | NUR ---
PT SLEEPING IN SEMI FOWLERS POSITION. REPSIRATIONS ARE EVEN AND UNLABORED ON 3L NC. IVF INFUSING PER ORDER, SITE REMAINS HEALTHY AND PATENT. SULLIVAN CATHATER IN PLACE, TUBING UNKINKED, FLOWING WITH GRAVITY. PT DENIES OF ANY PAINS OR DISCOMFORTS AT THIS TIME. ALL SAFETY PRECAUTIONS ARE IN PLACE WITH CALL LIGHT IN REACH. WILL CONTINUE TO MONITOR
--- NOTE | 2020-03-10 18:25 | NUR ---
PT CALLING ASKING FOR PAIN PILL FOR ABD PAIN RESUTLING IN 11/24. PT RESPIRATIONS LABORED. VITALS OBTAINED. BP 140/80, HR 130, O2 93% ON 3L NC.ULTRAM ADMINISTERED TO ASSIST WITH PAIN.
--- NOTE | 2020-03-10 18:45 | NUR ---
RESPIRTIONS STILL LABORED. PT STATES " IT HELPS A LITTLE." DR DELGADO CALLED, ORDER FOR TORADOL X1 DOSE.
--- NOTE | 2020-03-10 19:08 | NUR ---
RESPIRATIONS SHALLOW BUT LESS LABORED. PT STATES " IT STARTING TO KICK IN." O2 95% ON 3L NC. HR 115. ALL SAFTEY PRECAUTIONS ARE IN PLACE. WILL CONTINUE TO MONITOR
--- NOTE | 2020-03-10 20:10 | NUR ---
PT ASSESSMENT COMPLETED AT THIS TIME. NO S/O DISTRESS NOTED. CALL LIGHT AND BSC AT SIDE, PT DENIES ANY NEEDS AT THIS TIME.
--- NOTE | 2020-03-11 00:33 | NUR ---
PT IS SLEEPING, NO S/O DISTRESS NOTED. LIGHTS AND TV ARE OFF. SONOROUS SOUNDS FROM PT AT THIS TIME AND RISE AND FALL OF ABD VISUALIZED.
[2020-03-11 05:00] VITALS: BP 107/60
[2020-03-11 05:34] LABS: HEMATOCRIT 25.6 % (39.0-50.0); HEMOGLOBIN 7.7 g/dl (14.0-18.0); IMMATURE GRANULOCYTES 1.4 % (0.0-5.0); MEAN CELL VOLUME 80.3 fL CALC (80.0-100.0); MEAN CORPUSCULAR HGB 24.1 pG CALC (26.0-32.0); MEAN CORPUSCULAR HGB CONC 30.1 g/dL CAL (32.0-36.0); NEUT# 10.02 thou/uL (1.82-7.42); RED BLOOD COUNT 3.19 mill/uL (4.70-6.10); RED CELL DISTRI WIDTH 17.7 % (11.5-15.5)
--- NOTE | 2020-03-11 05:46 | NUR ---
PT MEDICATED ORDERS PROVIDE. NO S/O DISTRESS NOTED AT THIS TIME. CALL LIGHT AT SIDE. PT DENIES ANY NEEDS.
[2020-03-11 05:59] LABS: ALKALINE PHOSPHATASE 134 u/l (38-126); ANION GAP 8 (6-22 (CALC)); BILIRUBIN, TOTAL 0.4 mg/dL (0.0-1.4); BUN 26 mg/dL (8-23); BUN/CREATININE RATIO 24 (12-20 (CALC)); CARBON DIOXIDE 23 mmol/l (22-30); CHLORIDE 103 mmol/l (95-108); CREATININE 1.1 mg/dL (0.7-1.3); GFR > 60 ML/MIN (>=60 (CALC)); GFR FOR AFR.AMER. > 60 ML/MIN (>=60 (CALC)); POTASSIUM 4.4 mmol/l (3.5-5.1); SGOT/AST 34 u/l (19-48); SODIUM 129 mmol/l (137-146)
[2020-03-11 06:06] LABS: TOTAL PROTEIN 4.6 g/dL (6.3-8.2)
[2020-03-11 07:36] VITALS: BP 101/57
--- NOTE | 2020-03-11 07:36 | NUR ---
PT LAYING IN BED. A&O X3.O2 VIA NC @3L IN PLACE. PT DENIES ANY SOB. C/O OF "A LITTLE BIT BUT NOT BAD ENOUGH" PAIN TO LT KNEE. SULLIVAN CATHETER IN PLACE DRAINING VIA GRAVITY. NO REDDNESS OR SWELLING TO LT KNEE NOTED. CLEAR BREATH SOUNDS UPON AUSCULTATION, WITH AUDIBLE WHEEZING WITH EXCERTION. ASSESMENT COMPLETED. DISCUSSED POC. CALL LIGHT LEFT WITHIN REACH.
--- NOTE | 2020-03-11 09:23 | NUR ---
DR DELGADO AND Lan AYOUB APRN AT BEDSIDE
--- NOTE | 2020-03-11 09:45 | NUR ---
S: JYOTHI PADRON is a 79 M who presents with SEPSIS. He has a history of ESBL UTI. All medications in patient's chart were reviewed. O: VS: BP 101/57, P 89, RR ,T 98 W 107kg,\ HT 69IN, Scr= 1.1 A: Blood culture show NO GROWTH P: Patient is on VANCO AND MERREM. Vancomycin ordered for pharmacy to dose. CONTINUE Vancomycin 1 GRAM IV Q12H. Vancomycin trough is drawn before the 4th dose on 03/11/20 @2030. Vancomycin goal trough is between 10-20 mcg/ml. Pharmacy will follow and or advise on antibiotics use as needed. DONALDO OAKESD
--- NOTE | 2020-03-11 11:50 | NUR ---
PT LAYING IN BED. NO DISTRESS NOTED. CALL LIGHT IN REACH.
--- NOTE | 2020-03-11 14:41 | NUR ---
ATTEMPTED TO EVALUATE PT. PT REFUSED DUE TO BACK PAIN. PT HAD JUST BEEN MEDICATED.
[2020-03-11 15:26] VITALS: BP 130/74
--- NOTE | 2020-03-11 17:46 | NUR ---
PT SLEEPING IN BED. NO DISTRESS NOTED. CALL LIGHT LEFT WITHIN REACH.
[2020-03-11 19:00] VITALS: BP 119/52
--- NOTE | 2020-03-11 20:10 | NUR ---
PT OBSERVED SLEEPING AT THIS TIME. NO S/O DISTRESS NOTED.
--- NOTE | 2020-03-11 21:15 | NUR ---
PT WAS SLEEPING WHEN I ENTERED THE ROOM. HE AWOKE TO MY VOICE. PT WAS MEDICATED ORDERS PROVIDE AND IV ANTIBIOTICS ADMINISTERED AT THIS TIME. IV SITE APPEARS HEALTHY AND PATENT. ATTEMPTS TO OBTAIN COVID SWAB AT THIS TIME, PT REFUSED STATING "THAT'S CRAZY I ALREADY HAD IT." I EXPLAINED TO HIM THAT SOMETIMES WE HAVE FALSE NEGATIVES EARLY IN INFECTION AND IT IS A SAFETY TO RECHECK AND CONFIRM NO INFECTION OF COVID, HE REFUSED STATING, "TELL THE DOCTOR TO KEEP HIS SWAB." ASSISTED PT REPOSITION IN BED FOR COMFORT AND LIGHTS TURNED DOWN REQUESTED. DENIES ANY OTHER NEEDS AT THIS TIME. INSTRUCTED PT TO CALL NEEDS ARISE, CALL LIGHT NEXT TO HAND, VERBALIZED UNDERSTANDING.
[2020-03-12] VITALS: BP 138/82
[2020-03-12 00:30] VITALS: BP 133/85
--- NOTE | 2020-03-12 00:30 | NUR ---
I ENTERED THE ROOM TO CHECK PT, HE APPEARED TO HAVE LABORED BREATHING AND SOUND OF WHEEZING/REPORTED FEELING SOB AND COLD. V/S ASSESSED AT THIS TIME. BP STABLE, HR ELEVATED IN 120'S FEBRILE OF 102.3 OXYGEN 85% ON PULSE OX. RESPIRATORY CALLED TO ASSESS PT. OXYGEN UP TO 6L WITH SAT LEVELS AT 97% AT THIS TIME. BLANKETS HAVE BEEN REMOVED. PT ASKED AGAIN IF WE CAN SWAB HIM FOR COVID, HE REFUSES AND HE IS ASKING FOR BLANKETS, SHEET PROVIDED FOR COMFORT. PT MEDICATED WITH TORODOL FOR FEVER AND PHYSICIAN CALLED FOR NEW ORDERS. ORDERS RECEIVED AT THIS TIME FOR MORPHINE TO BE ADMINISTERED AND NEW ORDER FOR LASIX 20MG IV 1X DOSE.
--- NOTE | 2020-03-12 00:38 | NUR ---
BREATHING IS LESS LABORED, OXYGEN SAT LEVELS ARE STABLE AT THIS TIME @97%
--- NOTE | 2020-03-12 00:49 | NUR ---
PT MEDICATED W/LASIX PER ORDERS, PT REPORTS FEELING BETTER, BREATHING IS NOT LABORED, HR 116, TEMP 101.2 DOWN FROM 102.3 IVF HAVE BEEN SLOWED TO 10CC/HR AT THIS TIME. OXYGEN TITRATED DOWN TO 5L WITH SAT LEVELS MAINTAINING @95%
[2020-03-12 04:00] VITALS: BP 92/62
--- NOTE | 2020-03-12 04:18 | NUR ---
LAB IS IN W/PT OBTAINING BLOOD DRAW. PT WAS SLEEPING, DENIES ANY NEEDS AT THIS TIME.
--- NOTE | 2020-03-12 04:50 | NUR ---
PT MEDICATED ORDERS PROVIDE. HE REPORTS FEELING BETTER, NO S/O SOB OR DISTRESS. OXYGEN SAT LEVELS 95% ON 5L.
--- NOTE | 2020-03-12 06:20 | NUR ---
OXYGEN TITRATED DOWN TO 3LNC 95% RESPIRATIONS EVEN AND UN-LABORED. LUNG SOUNDS ARE CLEAR AT THIS TIME.
[2020-03-12 06:51] LABS: HEMATOCRIT 26.2 % (39.0-50.0); HEMOGLOBIN 7.8 g/dl (14.0-18.0); MEAN CELL VOLUME 80.9 fL CALC (80.0-100.0); MEAN CORPUSCULAR HGB 24.1 pG CALC (26.0-32.0); MEAN CORPUSCULAR HGB CONC 29.8 g/dL CAL (32.0-36.0); RED BLOOD COUNT 3.24 mill/uL (4.70-6.10)
[2020-03-12 07:25] LABS: ANION GAP 11 (6-22 (CALC)); BUN 19 mg/dL (8-23); BUN/CREATININE RATIO 19 (12-20 (CALC)); CARBON DIOXIDE 23 mmol/l (22-30); CHLORIDE 101 mmol/l (95-108); GFR > 60 ML/MIN (>=60 (CALC)); GFR FOR AFR.AMER. > 60 ML/MIN (>=60 (CALC)); MAGNESIUM 1.6 mg/dL (1.6-2.3); SODIUM 130 mmol/l (137-146)
[2020-03-12 08:18] VITALS: BP 115/57
--- NOTE | 2020-03-12 08:18 | NUR ---
PT SLEEPING IN BED. AWAKENED TO COMPLETE ASSESSMENT. A&0O X3. NO DISTRESS NOTED. O2 VIA NC @2L IN PLACE. AUDIBLE WHEEZING NOTED WITH EXCERTION. TRACE EDEMA NOTED TO BLE. SULLIVAN CATHETER DRAINING VIA GRAVITY WITH CLEAR YELLOW URINE NOTED. ASSESSMENT COMPLETED. DISCUSSED POC. CALL LIGHT LEFT WITHIN REACH.
--- NOTE | 2020-03-12 09:02 | NUR ---
DR DELGADO AND Lan AYOUB DIRECTOR OF REHABILITATION AT BEDSIDE DISCUSSING POC. PER Lan AYOUB IF FEVER OCCURS BC TO BE DRAWN.
--- NOTE | 2020-03-12 09:02 | NUR ---
DR DELGADO AND Lan AYOUB APRN AT BEDSIDE
--- NOTE | 2020-03-12 11:26 | NUR ---
S: JYOTHI PADRON is a 80 M who presents with sepsis. He has a history of diabetes, hypertension, high cholesterol, and neuropathy gout. All medications in patient's chart were reviewed. O: VS: BP 115/57, P 85 bpm, RR 20 breaths/min, T 97.7 F W 107.671 kg, HT 69 in, Scr 1 mg/dl, CrCl 89.8 ml/min Vancomycin trough 03/12 @ 0830 = 21 mcg/ml A: Blood culture is pending. Urine culture show ESBL E.coli which is sensitive to meropenem. P: Patient is on meropenem 1 g IV Q8H. Vancomycin ordered for pharmacy to dose. Start Vancomycin 750 mg IV Q12H. Vancomycin trough is drawn before the 4th dose on 03/13/20 @2130. Vancomycin goal trough is between 15-20 mcg/ml. Pharmacy will follow and or advise on antibiotics use as needed.
--- NOTE | 2020-03-12 15:38 | NUR ---
PT ASSISTED BACK INTO THE BED. PT TOLERATED WELL. CALL LIGHT LEFT WITHIN REACH.
[2020-03-12 15:42] VITALS: BP 107/67
--- NOTE | 2020-03-12 17:30 | NUR ---
PT LAYING IN BED C/O GENERALIZED PAIN. PAIN MEDICATION GIVEN. CALL LIGHT LEFT WITHIN REACH.
[2020-03-12 19:00] VITALS: BP 124/67
--- NOTE | 2020-03-12 20:18 | NUR ---
PT IS SLEEPING AT THIS TIME. NO S/O DISTRESS NOTED.
--- NOTE | 2020-03-12 23:12 | NUR ---
PT MEDICATED ORDERS PROVIDE AND ASSESSMENT COMPLETED AT THIS TIME. PT REPORTS FEELING BETTER THAN PREVIOUS NIGHT AND REPORTS JUST WANTING TO GET SOME SLEEP. CALL LIGHT IS AT SIDE AND PT INSTRUCTED TO CALL NEEDS ARISE.
[2020-03-13 04:00] VITALS: BP 128/70
--- NOTE | 2020-03-13 05:30 | NUR ---
PT MEDICATED FOR FEVER, PT APPEARS ASYMPTOMAT AT THIS TIME. STATES HE FEELS OKAY. PT HAD TAKEN HIS OXYGEN WHILE SLEEPING, OXYGEN SAT LEVELS 88% ON ROOM AIR. NC REPLACED ON 2L ANS AT LEVELS ARE NOW AT 95% ON 2L
[2020-03-13 06:19] LABS: HEMATOCRIT 26.2 % (39.0-50.0); HEMOGLOBIN 7.9 g/dl (14.0-18.0); MEAN CELL VOLUME 79.4 fL CALC (80.0-100.0); MEAN CORPUSCULAR HGB 23.9 pG CALC (26.0-32.0); MEAN CORPUSCULAR HGB CONC 30.2 g/dL CAL (32.0-36.0); RED BLOOD COUNT 3.3 mill/uL (4.70-6.10); RED CELL DISTRI WIDTH 18.3 % (11.5-15.5)
[2020-03-13 06:44] LABS: BUN 20 mg/dL (8-23); BUN/CREATININE RATIO 19 (12-20 (CALC)); CHLORIDE 99 mmol/l (95-108); GFR > 60 ML/MIN (>=60 (CALC)); GFR FOR AFR.AMER. > 60 ML/MIN (>=60 (CALC)); MAGNESIUM 1.7 mg/dL (1.6-2.3); POTASSIUM 3.8 mmol/l (3.5-5.1); SODIUM 132 mmol/l (137-146)
[2020-03-13 06:46] LABS: ANION GAP 9 (6-22 (CALC)); CARBON DIOXIDE 28 mmol/l (22-30)
--- NOTE | 2020-03-13 07:30 | NUR ---
RECIEVED REPORT FROM RUDOLPH VARGAS.
[2020-03-13 08:22] VITALS: BP 110/67
--- NOTE | 2020-03-13 08:22 | NUR ---
PT RESTING IN SEMI FOWLERS POSITION. INTRODUCED SELF TO PT AND DICUSSED POC. PT IS A/O X3. ASSESSMENT AND VITALS COMPLETED. BP 110/67, HR /81, O2 97% ON ROOM AIR. RESPIRATIONS ARE EVEN AND UNLABORED ON 2L NC. HEART RHYTHM IS NORMAL. BOWEL SOUND SARE ACTIVE IN ALL QUADRANTS, LAST REPORTED BM 03/12/20. RADIAL PULSES STRONG. PEDAL PULSES WEAK.SKIN IS WARMA DN INTACT WITH NO BREAKDOWN NOTED. #20G IN RAC INFUSING WITH IVF PER ORDER,SITE APPEARS HEALTHY AND PATENT. SULLIVAN CATHATER IN PLACE, 450 OF CLOUDY YELLOW URINE EMPTIED. PT DENIES OF ANY PAINS OR DISCOMFORTS. ALL SAFETY PRECAUTIONS ARE IN PLACE WITH CALL LIGHT IN REACH. WILL CONTINUE TO MONITOR.
--- NOTE | 2020-03-13 08:22 | NUR ---
RECIEVED REPORT FROM RUDOLPH VARGAS. PT RESTING IN SEMI FOLWERS POSITION UPON ENTERING ROOM. INTRODUCED SELF TO PT AND DISCUSSED POC. PT IS A/O X3. ASSESSMENT AND VITALS COMPLETED. BP 110/67, HR 81, O2 97% ON 2L NC. RESPIRATIONS ARE SHALLOW. LUNG SOUNDS CLEAR. HEART RHYTHM NORMAL. BOWEL SOUNDS ARE ACTIVE IN ALL QUADRANTS, LAST RPORTED BM 03/09/20. RADIAL PULSES STRONG. PEDAL PULSES WEAK. #20G IN RAC INFUSING WITH IVF PER ORDER, SITE APPEARS HEALTHY AND PATENT. SKIN IS WAMR AND INTACT WITH NO BREAKDOWN NOTED.SULLIVAN CATHATER IN PLACE, TUBING PATENT. PT DENEIS OF ANY PAINS. ALL SAFETY PRECAUTIONS ARE IN PLACE WITH CALL LIGHT IN REACH. WILL CONTINUE TO MONITOR.
--- NOTE | 2020-03-13 09:56 | NUR ---
KARINE FROM DR SCALES OFFICE AT BEDSIDE
--- NOTE | 2020-03-13 12:37 | NUR ---
RAILROAD CARMAN ASSISTED PT INTO CHAIR. RESPIRATIONS SHALLOW ON 2L NC. SULLIVAN CATHATER IN PLACE, TUBING PATENT. #20G IN RAC INFUSING WITH IVF PER ORDER, SITE APPEARS HEALTHY AND PATENT. PT DENIES OF ANY PAINS OR DISCOMFORTS. ALL SAFETY PRECAUTIONS ARE IN PLACE WITH CALL LIGHT IN REACH. WILL CONTINUE TO MONITOR.
--- NOTE | 2020-03-13 15:46 | NUR ---
PT SLEEPING IN SEMI FOWLERS POSITIONS. RESPIRATIONS ARE EVEN AND UNLABORED ON 2L HECTOR. SULLIVAN CATATHATER IN PLACE, TUBING PATENT. IVF INFUSING PER ORDE, SITE REMAINS HEALTHY AND PATENT. NO SIGNS OF ANY NEEDS AT THIS TIME. WILL CONTINUE TO MONITOR
[2020-03-13 16:15] VITALS: BP 118/62
--- NOTE | 2020-03-13 17:00 | NUR ---
DRESSING TO LEFT FELDER CHANGED. CLEANED WITH SALINE. ALGINATE, GUAZE AND TEGEDERM APPLIED. PT TOLERATED WELL
[2020-03-13 20:00] VITALS: BP 137/75
--- NOTE | 2020-03-13 20:00 | NUR ---
PATIEMT RESTING IN BED AT THIS TIME WITH O2 VIA NASAL CANNULA IN PLACE AT 2LPM. O2 SAT IS 99%. PATIENT IS AWAKE ALERT AND ORIENTEDX3-WATCHING TV. SULLIVAN PATENT AND DRAINING YELLOW URINE. IVF NS PATENT AND INFUSING VIA RAC SITE AT 75CC/HR. SITE IS HEALTHY AT THIS TIME. DRESSING TO LEFT FELDER IS CDI. MEDICATED FOR C/O LEFT KNEE PAIN WITH ULTRAM 50MG PO. OTHER HS MEDS WERE GIVEN. AWAITING TRANSFER TO [facility]. SAFETY PRECAUTIONS REINFORCED. CALL LIGHT IN REACH. WILL CONT TO MONITOR.
--- NOTE | 2020-03-14 00:21 | NUR ---
PATIENT RESTING IN BED AT THIS TIME WITH O2 VIA NASAL CANNULA IN PLACE AT T2LPM. RIGHT ARM APPEARS SLIIGHTLY SWOLLEN-IV SITE TO RAC-GOOD BLOOD RETURN AT THIS TIME. IVF PATENT AND INFUSING AT 75CC/HR. SULLIVAN CATH PATENT AND DRAINING YELLOW URINE. CALL LIGHT IN REACH. WILL CONT TO MONITOR.
[2020-03-14 04:50] VITALS: BP 145/76
--- NOTE | 2020-03-14 04:58 | NUR ---
PATIENT RESTING IN BED AT THIS TIME WITH HOB SLIGHTLY ELEVATED AND O2 VIA NASAL CANNULA IN PLACE. EYES ARE CLOSED AND RESPS ARE EVEN AND UNLABORED. SULLIVAN CATH IS PATENT AND DRAING YELLOW URINE. IVF NS PATENT AND INFUSING VIA RAC SITE. CALL LIGHT IN REACH. WILL CONT TO MONITOR.
[2020-03-14 05:10] LABS: HEMATOCRIT 25.4 % (39.0-50.0); HEMOGLOBIN 7.6 g/dl (14.0-18.0); IMMATURE GRANULOCYTES 1.9 % (0.0-5.0); MEAN CELL VOLUME 79.6 fL CALC (80.0-100.0); MEAN CORPUSCULAR HGB 23.8 pG CALC (26.0-32.0); MEAN CORPUSCULAR HGB CONC 29.9 g/dL CAL (32.0-36.0); NEUT# 4.61 thou/uL (1.82-7.42); RED BLOOD COUNT 3.19 mill/uL (4.70-6.10); RED CELL DISTRI WIDTH 18.5 % (11.5-15.5)
[2020-03-14 05:36] LABS: ALKALINE PHOSPHATASE 137 u/l (38-126); ANION GAP 7 (6-22 (CALC)); BILIRUBIN, TOTAL 0.4 mg/dL (0.0-1.4); BUN 17 mg/dL (8-23); BUN/CREATININE RATIO 18 (12-20 (CALC)); CARBON DIOXIDE 28 mmol/l (22-30); CHLORIDE 100 mmol/l (95-108); CREATININE 0.9 mg/dL (0.7-1.3); GFR > 60 ML/MIN (>=60 (CALC)); GFR FOR AFR.AMER. > 60 ML/MIN (>=60 (CALC)); SGOT/AST 44 u/l (19-48); SODIUM 131 mmol/l (137-146); TOTAL PROTEIN 4.6 g/dL (6.3-8.2)
--- NOTE | 2020-03-14 07:00 | NUR ---
REPORT RECEIVED FROM RUDOLPH POTTER
[2020-03-14 08:00] VITALS: BP 129/65
--- NOTE | 2020-03-14 08:00 | NUR ---
PT RESTING IN SEMI FOWLERS POSITION,A&O X3;VS OBTAINED AND ASSESSMENT COMPLETED;PT DENIES ANY CURRENT PAIN OR DISCOMFORTS,PAIN SCALE AND REPORTING EDUCATED;RESPIRATIONS EVEN AND UNLABORED ON O2 @ 2L VIA NC;ABDOMEN SOFT ON PALPATION AND ACTIVE IN ALL 4 QUADRANTS;SULLIVAN CATHETER PATENT DRAINING TO GRAVITY WITH EASE,LEG STRAP NOTED TO RIGHT THIGH;WEAK PEDAL PULSES;#20G TO RAC INFUSING NS @ 50ML/HR,SITE APPEARS HEALTHY;ACCUCHECK 117, NO COVERAGE NEEDED;PT RE-POSITIONED INTO RECLINER PER REQUEST;PT DENIES ANY ADDITIONAL NEEDS;ENCOURAGED TO CALL FOR ASSISTANCE IF NEEDED;CALL LIGHT IN REACH;WILL CONTINUE TO MONITOR
--- NOTE | 2020-03-14 08:58 | NUR ---
AT BEDSIDE DISCUSSING POC.
--- NOTE | 2020-03-14 11:15 | NUR ---
PT RESTING IN SEMI FOWLERS POSIITON;RESPIRATIONS EVEN AND UNLABORED ON O2 @ 2L VIA NC;PT DENIES ANY CURRENT PAIN OR DISCOMFORTS;SULLIVAN CATHETER REMAINS PATENT DRAINING TO GRAVITY WITH EASE;IV SITE TO RAC REMOVED WITH CATHETER INTACT DUE TO LEAKING AND NEW #22G TO LAC STARTED ON FIRST ATTEMPT BY THIS WRITTER,PT TOLERATED WELL AND IVF RE-STARTED;ACCUCHECK 172, PT COVERED WITH SLIDING SCALE INSULIN PER ORDER;PT DENIES ANY ADDITIONAL NEEDS AT THIS TIME;ENCOURAGED TO CALL FOR ASSISTANCE IF NEEDED;FALL PRECAUTIONS REMAIN IN PLACE WITH CALL LIGHT IN REACH;WILL CONTINUE TO MONITOR
--- NOTE | 2020-03-14 13:30 | NUR ---
PT RESTING IN SEMI FOWLERS POSITION;RESPIRATIONS REMAIN EVEN AND UNLABORED ON O2 @ 2L VIA NC;PT REPORTS LLE PAIN RATING 6/10 ON THE PAIN SCALE AND REQUESTS PAIN MEDICATION,PT MEDICATED WITH PRN ULTRAM 50MG PO;SULLIVAN CATHETER REMAINS PATENT;IV FLUIDS INFUSING WITH EASE TO LAC AND ABX STARTED AT THIS TIME;PT DENIES ANY ADDITIONAL NEEDS;CALL LIGHT IN REACH;WILL CONTINUE TO MONITOR
--- NOTE | 2020-03-14 15:30 | NUR ---
PT RESTING IN SEMI FOWLERS POSITION;RESPIRATIONS EVEN AND UNLABORED ON O2 @ 2L VIA NC;PT DENIES ANY CURRENT PAIN OR DISCOMFORTS;SULLIVAN CATHETER PATENT DRAINING TO GRAVITY WITH EASE;LAC CONTINUES TO REMAIN PATENT INFUSING NS WITH EASE;PT DENIES ANY NEEDS AT THIS TIME AND IS ENCOURAGED TO CALL FOR ASSISTANCE IF NEEDED;CALL LIGHT IN REACH;WILL CONTINUE TO MONITOR
[2020-03-14 16:00] VITALS: BP 119/69
[2020-03-14 19:00] VITALS: BP 110/60
--- NOTE | 2020-03-14 20:00 | NUR ---
PATIENT RESTING IN BED AT THIS TIME WITH HOB ELEVATED AND O2 VIA NASAL CANNULA IN PLACE WATCHING TV. O2 SAT IS 96%. IV SITE TO LAC INTACT WITH IVF NS PATENT AND INFUSING AT 50CC/HR. SITE IS HEALTHY AT THIS TIME. SULLIVAN CATH PATENT AND DRAING YELLOW URINE. PATIENT MEDICATED FOR LEFT KNEE PAIN WITH TRAMADOL 50MG PO. SAFETY PRECAUTIONS REINFORCED. CALL LIGHT IN REACH. WILL CONT TO MONITOR.
--- NOTE | 2020-03-14 21:00 | NUR ---
ACCU-CHECK IS 147-NO COVERAGE NEEDED. HS SNACK PROVIDED. CALL LIGHT IN REACH, WILL CONT TO MONITOR.
--- NOTE | 2020-03-15 00:24 | NUR ---
PATIENT RESTING IN BED WITH HOB ELEVATED AND O2 VIA NASAL CANNULA IN PLACE. RESPS ARE EVEN AND UNLABORED. APPEARS SLEEPING. CALL LIGHT IN REACH. WILL CONT TO MONITOR.
--- NOTE | 2020-03-15 03:59 | NUR ---
PATIENT WITH O2 VIA NASAL CANNULA IN PLACE AT 3LPM. HOB IS SLIGHTLY ELEVATED. EYES ARE CLOSED. RESPS ARE EVEN AND UNLABORED. SULLIVAN PATENT AND DRAINING YELLOW URINEIVF PATENT AND INFUSING VIA LAC SITE AT 50CC/HR. SITE REMAINS HEALTHY AT THIS TIME. CALL LIGHT IN REACH. WILL CONT TO MONITOR.
[2020-03-15 04:00] VITALS: BP 133/72
[2020-03-15 05:23] LABS: HEMATOCRIT 25.1 % (39.0-50.0); HEMOGLOBIN 7.7 g/dl (14.0-18.0); MEAN CELL VOLUME 78.7 fL CALC (80.0-100.0); MEAN CORPUSCULAR HGB 24.1 pG CALC (26.0-32.0); MEAN CORPUSCULAR HGB CONC 30.7 g/dL CAL (32.0-36.0); RED BLOOD COUNT 3.19 mill/uL (4.70-6.10); RED CELL DISTRI WIDTH 18.4 % (11.5-15.5)
[2020-03-15 05:56] LABS: ANION GAP 7 (6-22 (CALC)); BUN 15 mg/dL (8-23); BUN/CREATININE RATIO 18 (12-20 (CALC)); CARBON DIOXIDE 29 mmol/l (22-30); CHLORIDE 98 mmol/l (95-108); CREATININE 0.9 mg/dL (0.7-1.3); GFR > 60 ML/MIN (>=60 (CALC)); GFR FOR AFR.AMER. > 60 ML/MIN (>=60 (CALC)); POTASSIUM 3.5 mmol/l (3.5-5.1); SODIUM 131 mmol/l (137-146)
[2020-03-15 08:32] VITALS: BP 155/79
--- NOTE | 2020-03-15 08:32 | NUR ---
PT LAYING IN BED. A&O X3. NO DISTRESS NOTED. O2 VIA NC @2L IN PLACE. PT DENIES ANY PAIN AT THIS TIME. EDEMA NOTED TO BILATERAL ANKLES, LT BEING WORSE WITH +1 PITTING EDEMA. LT KNEE NOT REDDENED OR WARM TO TOUCH. AFEBRILE AT THIS TIME. ASSESSMENT COMPLETED. DISCUSSED POC. CALL LIGHT IN REACH.
--- NOTE | 2020-03-15 12:25 | NUR ---
Patient tells me he may be having a surgery for I and D of the knee. I discussed this with him. He understands that pushing any sort of rehab at this point is fruitless and he needs to concentrate on safe transfers and mobility as well as functional ROM. He did complain of shoulder and back pain with movement today. He is able to work on repeated sit to stand and did ambulate with FWW x 30 feet with good pain control. Am Pac is 13 indicating he would do well in short term rehab to regain strength once he is medically ready
[2020-03-15 15:49] VITALS: BP 120/52
--- NOTE | 2020-03-15 17:05 | NUR ---
CALLED ANTOLIN AT SPOKE TO [facility] WAS GIVEN TIME OF [phone] TONIGHT FOR TRANSFER TO [facility], [place], [facility]PER[facility] BY [facility] ROOM 222 BED 2.
--- NOTE | 2020-03-15 17:40 | NUR ---
TEMP 98.1, PT REPORTS TO BE FEELING BETTER. PT SITTING IN BED EATING DINNER. CALL LIGHT LEFT WITHIN REACH.
[2020-03-15 19:50] VITALS: BP 123/59
--- NOTE | 2020-03-15 22:42 | NUR ---
Upon arrival to shift attempted to flush IV in LAC without success. 20 guage placed in right wrist without difficulty. Flushes easily. pt re hooked up to NS @ 50ml/hr. No s/s of infiltration noted. Pt was given 2100 and 2200 medications. VS WNL. This jingle writer called [facility] regarding pt and to give report. This jingle writer spoke with Aissatou Landrum RN at [facility] and gave a full report on pt. [facility] transportation arrived at 2230 for transport. Report and transfer paperwork given to [facility]. [facility] with [facility]. Lise Sotomayor LPN
== END 2020-03-15 22:30 | DRG 559 ==
LOC: ED 13:59 → ED-I 16:40 → ED 17:01 → MS2 17:02
PROVIDERS: Family Medicine; Internal Medicine; Nurse Practitioner; ADMIT Internal Medicine; ATTEND Internal Medicine
PROC: 0SJD3ZZ Inspection of Left Knee Joint, Percutaneous Approach (ICD-10-PCS; principal; 2020-03-04)
PROC: 0S9D3ZX Drainage of Left Knee Joint, Percutaneous Approach, Diagnostic (ICD-10-PCS; 2020-03-05)
PROC: 0T9B70Z Drainage of Bladder with Drainage Device, Via Natural or Artificial Opening (ICD-10-PCS; 2020-03-07)
DX: T84.54XA Infection and inflammatory reaction due to internal left knee prosthesis, initial encounter (principal); A41.9 Sepsis, unspecified organism; R65.20 Severe sepsis without septic shock; M00.9 Pyogenic arthritis, unspecified; N39.0 Urinary tract infection, site not specified; E87.2 Acidosis; Z16.12 Extended spectrum beta lactamase (ESBL) resistance; I50.22 Chronic systolic (congestive) heart failure; I11.0 Hypertensive heart disease with heart failure; E11.65 Type 2 diabetes mellitus with hyperglycemia; E11.40 Type 2 diabetes mellitus with diabetic neuropathy, unspecified; E11.51 Type 2 diabetes mellitus with diabetic peripheral angiopathy without gangrene; J44.9 Chronic obstructive pulmonary disease, unspecified; M10.9 Gout, unspecified; M13.862 Other specified arthritis, left knee; I25.9 Chronic ischemic heart disease, unspecified; I25.118 Atherosclerotic heart disease of native coronary artery with other forms of angina pectoris; E78.5 Hyperlipidemia, unspecified; E66.9 Obesity, unspecified; D50.9 Iron deficiency anemia, unspecified; R33.9 Retention of urine, unspecified; R31.9 Hematuria, unspecified; G47.30 Sleep apnea, unspecified; T38.0X5A Adverse effect of glucocorticoids and synthetic analogues, initial encounter; B96.20 Unspecified Escherichia coli [E. coli] as the cause of diseases classified elsewhere; Y83.1 Surgical operation with implant of artificial internal device as the cause of abnormal reaction of the patient, or of later complication, without mention of misadventure at the time of the procedure; Z68.31 Body mass index [BMI] 31.0-31.9, adult; Z95.1 Presence of aortocoronary bypass graft; Z87.891 Personal history of nicotine dependence; Z20.822 Contact with and (suspected) exposure to COVID-19; Z96.652 Presence of left artificial knee joint
CPT/HCPCS: A9579; J0692; J1650; J1756; J3370; Q3014

== ENCOUNTER 2020-04-21 12:34 | Inpatient (IN) | payer MEDICARE ==
[~2020-04-21] VITALS: Ht 177.8 cm; Wt 93.0 kg
--- NOTE | 2020-04-21 13:05 | NUR ---
PT TO ROOM W/STEADY GAIT USES WALKER
--- NOTE | 2020-04-21 13:30 | NUR ---
COVID SWAB COLLECTED, ISOLATION PRECAUTIONS INITIATED.
[2020-04-21 14:02] LABS: HEMOGLOBIN 9.3 g/dl (14.0-18.0); IMMATURE GRANULOCYTES 0.4 % (0.0-5.0); MEAN CORPUSCULAR HGB 27.3 pG CALC (26.0-32.0); NEUT# 5.28 thou/uL (1.82-7.42); RED BLOOD COUNT 3.41 mill/uL (4.70-6.10); RED CELL DISTRI WIDTH 20.3 % (11.5-15.5)
[2020-04-21 14:03] LABS: URINE BILIRUBIN - DIPSTICK NEGATIVE (NEGATIVE); URINE BLOOD DIPSTICK TRACE-INTACT (NEGATIVE); URINE COLOR YELLOW; URINE GLUCOSE - DIPSTICK NEGATIVE (NEGATIVE); URINE KETONE TRACE mg/dL (NEGATIVE); URINE PH 5.5 (4.5-8.0); URINE PROTEIN - DIPSTICK TRACE mg/dL (NEG-TRACE); URINE UROBILINOGEN - DIPSTICK 0.2 E.U./dL (0.2)
[2020-04-21 14:06] LABS: URINE LEUK ESTERASE MODERATE (NEGATIVE); URINE NITRITE - DIPSTICK POSITIVE (Negative)
[2020-04-21 14:07] LABS: URINE BACTERIA MODERATE hpf; URINE RBC 0-2 RBC/hpf (0-5)
[2020-04-21 14:19] LABS: ALKALINE PHOSPHATASE 160 u/l (38-126); ANION GAP 11 (6-22 (CALC)); BUN 12 mg/dL (8-23); BUN/CREATININE RATIO 14 (12-20 (CALC)); CARBON DIOXIDE 27 mmol/l (22-30); CHLORIDE 101 mmol/l (95-108); CREATININE 0.9 mg/dL (0.7-1.3); GFR > 60 ML/MIN (>=60 (CALC)); GFR FOR AFR.AMER. > 60 ML/MIN (>=60 (CALC)); POTASSIUM 4.1 mmol/l (3.5-5.1); SGOT/AST 29 u/l (19-48); SODIUM 135 mmol/l (137-146)
[2020-04-21 14:20] LABS: ALBUMIN 3.4 g/dL (3.2-5.0); BILIRUBIN, TOTAL 0.6 mg/dL (0.0-1.4); TOTAL PROTEIN 6.9 g/dL (6.3-8.2)
--- NOTE | 2020-04-21 15:25 | NUR ---
MD AT BEDSIDE TO DISCUSS RESULTS AND POC.
--- NOTE | 2020-04-21 17:10 | NUR ---
REPORT CALLED TO KAYODE GALDAMEZ.
--- NOTE | 2020-04-21 17:15 | NUR ---
TO MED SURG VIA STRETCHER, TELE MONITOR IN PLACE.
--- NOTE | 2020-04-21 17:15 | NUR ---
REPORT RECEIVED FROM MELECIO IN ED, PT ARRIVED ON UNIT TRANSPORTED VIA STRETCHER, ALERT AND ORIENTED X 4, TRANSFERRED TO BED AND SETTLED. ORIENTED TO ROOM AND CALL LOPEZ. C/O BEING COLD AND SHIVERING AND REQUESTING WARM BLANKET. TEMP = 100.9. ADVISED WARM BLANKET ISNT APPROPRIATE FOR SOMEONE WITH ELEVATED TEMP BUT HE INSISTED ON HAVING IT AND WOULD NOT COOPERATE WITH ADMISSION ASSESSMENT. HE GOT HIS WISH, RELAXED AND COOPERATED. HE C/O GENERALISED PAIN AND ORDERS RECEIVED FROM . HE IS CONTINENT BUT HAS DIFFICULTY PLACING URINAL RESULTING IN SPILLS ON FLOOR. EDUCATED ON FALL RISKS AND STATED UNSERSTANDING, EDUCATED ON BED ALARM A REMINDER TO CALL FOR ASSIST. CALL LOPEZ IN REACH AND BED LOCKED IN LOWEST POSITION. WALLET WITH CARDS AND $1400.00 IN [place] PLACED IN SECURITY BAG AND SENT TO [facility] WITH [facility] NEWCOMER HOSTESS.
[2020-04-21 17:35] VITALS: BP 155/86
[2020-04-21 17:55] VITALS: BP 150/86
--- NOTE | 2020-04-21 19:10 | NUR ---
REPORT FROM KAYODE GALDAMEZ. ASSUMED PT CARE.
--- NOTE | 2020-04-21 19:55 | NUR ---
PT RESTING IN BED. NO APPARENT DISTRESS NOTED. PT ALERT AND ORIENTED X4. IV SITE APPEAS HEALTHY. MEDICAL OFFICE TECHNOLOGY INSTRUCTOR IN PLACE. PT DENIES ANY PAIN OR DISCOMFORT. DISCUSSED POC. PT VERBALIZED UNDERSTANDING. DIABETIC SNACK PROVIDED UPON REQUEST. NO OTHER CURRENT WANTS OR NEEDS. CALL LIGHT WITHIN REACH. WILL CONTINUE TO MONITOR.
--- NOTE | 2020-04-21 22:16 | NUR ---
IV ABT INFUSING WITHOUT DIFFICULTY. PT TOLERATING WELL. NO S/S OF ADVERSE REACTION NOTED. IV SITE APPEARS HEALTHY. CALL LIGHT WITHIN REACH. WILL CONTINUE TO MONITOR.
[2020-04-22 00:48] VITALS: BP 135/88
--- NOTE | 2020-04-22 01:57 | NUR ---
PT RESTING IN BED WITH EYES CLOSED. NO APPARENT DISTRESS NOTED. RESPIRATIONS EVEN AND UNLABORED. DATA NETWORK ARCHITECT IN PLACE. IV SITE APPEARS HEALTHY. CALL LIGHT WITHIN REACH. WILL CONTINUE TO MONITOR.
[2020-04-22 04:00] VITALS: BP 151/76
--- NOTE | 2020-04-22 05:00 | NUR ---
CURRICULUM AND ASSESSMENT COORDINATOR IN ROOM TO OBTAIN LABS.
[2020-04-22 05:20] LABS: HEMATOCRIT 27.8 % (39.0-50.0); HEMOGLOBIN 8.8 g/dl (14.0-18.0); IMMATURE GRANULOCYTES 0.3 % (0.0-5.0); MEAN CELL VOLUME 85.8 fL CALC (80.0-100.0); MEAN CORPUSCULAR HGB 27.2 pG CALC (26.0-32.0); MEAN CORPUSCULAR HGB CONC 31.7 g/dL CAL (32.0-36.0); NEUT# 4.64 thou/uL (1.82-7.42); RED BLOOD COUNT 3.24 mill/uL (4.70-6.10); RED CELL DISTRI WIDTH 19.9 % (11.5-15.5)
[2020-04-22 06:08] LABS: ALKALINE PHOSPHATASE 133 u/l (38-126); ANION GAP 8 (6-22 (CALC)); BILIRUBIN, TOTAL 0.8 mg/dL (0.0-1.4); BUN 8 mg/dL (8-23); BUN/CREATININE RATIO 11 (12-20 (CALC)); CARBON DIOXIDE 28 mmol/l (22-30); CHLORIDE 99 mmol/l (95-108); CREATININE 0.7 mg/dL (0.7-1.3); GFR > 60 ML/MIN (>=60 (CALC)); GFR FOR AFR.AMER. > 60 ML/MIN (>=60 (CALC)); POTASSIUM 3.5 mmol/l (3.5-5.1); SGOT/AST 20 u/l (19-48); SODIUM 132 mmol/l (137-146)
[2020-04-22 06:17] LABS: ALBUMIN 2.5 g/dL (3.2-5.0); TOTAL PROTEIN 5.4 g/dL (6.3-8.2)
[2020-04-22 07:25] VITALS: BP 121/56
--- NOTE | 2020-04-22 07:25 | NUR ---
PT SLEEPING IN BED. AWAKENED TO COMPLETE ASSESSMENT. A&O X3. NO DISTRESS NOTED. PT DENIES ANY PAIN AT THIS TIME. AFEBRILE AT THIS TIME. CURRENTLY ON ROOM AIR SUSTAINING 95-96%. CLEAR/DIMINISHED BREATH SOUNDS UPON AUSCULTATION. #[address], HEALTHY AND PATENT. TRACE EDEMA TO BLE. PT DENIES ANY KNEE PAIN. FREIGHT COORDINATOR IN PLACE. ASSESSMENT COMPLETED. DISCUSSED POC. CALL LIGHT WITHIN REACH.
--- NOTE | 2020-04-22 09:09 | NUR ---
DR DELGADO AND Lan AYOUB APRN AT BEDSIDE
[2020-04-22 11:00] VITALS: BP 127/69
--- NOTE | 2020-04-22 11:38 | NUR ---
PT SITTING IN BED. NO NEEDS AT THIS TIME. TELEMETRY REMOVED PER MD VERBAL ORDERS. CALL LIGHT WITHIN REACH.
--- NOTE | 2020-04-22 13:10 | NUR ---
SON AT BEDSIDE.
--- NOTE | 2020-04-22 13:34 | NUR ---
KIARA INITIATED. PT SITTING IN CHAIR. CALL LIGHT LEFT WITHIN REACH.
[2020-04-22 15:15] VITALS: BP 147/82
--- NOTE | 2020-04-22 17:49 | NUR ---
PT SITTING IN BED EATING DINNER. NO NEEDS AT THIS TIME. CALL LIGHT WITHIN REACH.
--- NOTE | 2020-04-22 18:05 | NUR ---
PT LAYING IN BED. NO DISTRESS NOTED. PT DENIES ANY SOB. PT ENCOURAGED TO CALL IF SOB OCCURS. PT VERBALIZED UNDERSTANDING. CALL LIGHT WITHIN REACH.
[2020-04-22 19:00] VITALS: BP 123/54
--- NOTE | 2020-04-22 19:00 | NUR ---
REPORT RECEIVED FROM Bell SCHMIDT RN, CARE OF PT ASSUMED AT THIS TIME.
--- NOTE | 2020-04-22 20:53 | NUR ---
PT SITTING UP IN CHAIR. BLOOD ON LINENS FROM PT ACCIDENTALLY REMOVING IV. LINENS CHANGED. PHYSICAL ASSESMENT COMPLETE. PT BACK TO BED. NEW SITE TO L-FA 22G X1 ATTEMPT. SITE RECONNECTED TO IVF. SCHEDULED MEDICATIONS ADMINISTERED, SEE E-MAR. PLAN OF CARE REVIEWED, PT VERBALIZES UNDERSTANDING AND DENIES QUESTIONS. WARM BLANKET PROVIDED PER PTS REQUEST. PT DENIES FURTHER NEEDS AT THIS TIME. CALL LOPEZ WITHIN REACH, AGREES TO CALL PRN.
--- NOTE | 2020-04-23 | NUR ---
PT APPEARS TO BE SLEEPING COMFORTABLY, LAYING IN BED WITH EYES CLOSED, RESPIRATIONS REGULAR AND UNLABORED, NO APPARENT DISTRESS. CALL LOPEZ REMAINS WITHIN REACH.
[2020-04-23 04:39] VITALS: BP 137/91
--- NOTE | 2020-04-23 07:00 | NUR ---
SHIFT CHANGE REPORT, PT AWAKE ALERT AND ORIENTED RESTING IN BED, DENIES PAIN/DISCOMFORT AT THIS TIME, ALL NEEDS ADDRESSED, CALL LOPEZ IN REACH AND BED IN LOWEST POSITION.
--- NOTE | 2020-04-23 07:38 | NUR ---
PT note Patient is screened for PT intervention and no needs are identified at this time
--- NOTE | 2020-04-23 07:47 | NUR ---
PRELIM BLOOD CX RESULTS SHOW GRAM NEGATIVE RODS IN 2 BOTTLES, SAME SET. RESULTS CALLED TO ANITHA. PT URINE CX SHOWS ESBL ECOLI, RECEIVING MERREM. WILL F/U WITH FINAL RESULTS.
[2020-04-23 08:28] VITALS: BP 139/68
[2020-04-23 08:48] LABS: HEMATOCRIT 32.1 % (39.0-50.0); HEMOGLOBIN 10.3 g/dl (14.0-18.0); IMMATURE GRANULOCYTES 0.3 % (0.0-5.0); MEAN CELL VOLUME 84.7 fL CALC (80.0-100.0); MEAN CORPUSCULAR HGB 27.2 pG CALC (26.0-32.0); MEAN CORPUSCULAR HGB CONC 32.1 g/dL CAL (32.0-36.0); NEUT# 4.37 thou/uL (1.82-7.42); RED BLOOD COUNT 3.79 mill/uL (4.70-6.10); RED CELL DISTRI WIDTH 19.6 % (11.5-15.5)
[2020-04-23 09:11] LABS: ANION GAP 12 (6-22 (CALC)); BUN 10 mg/dL (8-23); BUN/CREATININE RATIO 12 (12-20 (CALC)); CARBON DIOXIDE 27 mmol/l (22-30); CHLORIDE 96 mmol/l (95-108); CREATININE 0.8 mg/dL (0.7-1.3); GFR > 60 ML/MIN (>=60 (CALC)); GFR FOR AFR.AMER. > 60 ML/MIN (>=60 (CALC)); POTASSIUM 3.6 mmol/l (3.5-5.1); SODIUM 131 mmol/l (137-146)
--- NOTE | 2020-04-23 11:15 | NUR ---
DR WOO NOTIFIED AT THIS TIME ABOUT CONSULT FOR PT.
--- NOTE | 2020-04-23 11:45 | NUR ---
DR ALLEN CONSULTED WITH PT VIA VIRTUAL MODE, TO CONTINUE ABT, WILL ORDER CT AND MRI. PT STATED UNDERSTANDING.
--- NOTE | 2020-04-23 14:21 | NUR ---
PT TRANSFERRED TO W/C AT THIS TIME AND TRANSPORTED OFF UNIT BY STAFF TO CT/MRI.
--- NOTE | 2020-04-23 16:24 | NUR ---
JUST RETURNED TO UNIT FROM PROCEDURE, SETTLED IN RECLINER NOW, SPOUSE VISITING.
[2020-04-23 16:35] VITALS: BP 142/71
[2020-04-23 18:54] VITALS: BP 115/71
--- NOTE | 2020-04-23 19:00 | NUR ---
REPORT RECEIVED FROM Thomas SAMUEL RN, CARE OF PT ASSUMED AT THIS TIME.
--- NOTE | 2020-04-23 20:20 | NUR ---
PT REQUESTING MEDICATION TO HELP HIM SLEEP, NO SLEEPING PILL CURRENTLY PRESCRIBED. PT'S REQUEST ENDORSED TO DR. RENEE. ORDER FOR SONATA 5MG PO QHS PRN RECEIVED.
--- NOTE | 2020-04-23 21:00 | NUR ---
PHYSICAL ASSESMENT COMPLETE. SCHEDULED MEDICATION ADMINISTERED, PRN APAP ADMINISTERED FOR LEFT KNEE DISCOMFORT AND PRN SONATA ADMINISTERED FOR SLEEP. SEE E-MAR. PLAN OF CARE REVIEWED, PT VERBALIZES UNDERSTANDING AND DENIES QUESTION. LEFT FOREARM #22G IV PATENT AND INFUSING, SECURED WITH ADDITIONAL TAPE PER PTS REQUEST. 400ML CLEAR YELLOW URINE EMPTIED FROM URINAL AT BEDSIDE. PT DENIES FURTHER NEEDS AT THIS TIME. CALL LOPEZ WITHIN REACH, AGREES TO CALL PRN.
--- NOTE | 2020-04-24 00:38 | NUR ---
PT APPEARS TO BE SLEEPING COMFORTABLY, LAYING IN BED WITH EYES CLOSED, RESPIRATIONS REGULAR AND UNLABORED, NO APPARENT DISTRESS. CALL LOPEZ REMAINS WITHIN REACH.
[2020-04-24 04:00] VITALS: BP 118/81
[2020-04-24 05:22] LABS: HEMATOCRIT 30.5 % (39.0-50.0); HEMOGLOBIN 9.8 g/dl (14.0-18.0); MEAN CORPUSCULAR HGB 27.3 pG CALC (26.0-32.0); MEAN CORPUSCULAR HGB CONC 32.1 g/dL CAL (32.0-36.0); RED BLOOD COUNT 3.59 mill/uL (4.70-6.10); RED CELL DISTRI WIDTH 19.5 % (11.5-15.5)
[2020-04-24 05:45] LABS: ANION GAP 11 (6-22 (CALC)); BUN 10 mg/dL (8-23); BUN/CREATININE RATIO 15 (12-20 (CALC)); CARBON DIOXIDE 26 mmol/l (22-30); CHLORIDE 101 mmol/l (95-108); CREATININE 0.7 mg/dL (0.7-1.3); GFR > 60 ML/MIN (>=60 (CALC)); GFR FOR AFR.AMER. > 60 ML/MIN (>=60 (CALC)); MAGNESIUM 1.7 mg/dL (1.6-2.3); POTASSIUM 3.4 mmol/l (3.5-5.1); SODIUM 134 mmol/l (137-146)
[2020-04-24 07:09] VITALS: BP 132/73
--- NOTE | 2020-04-24 07:23 | NUR ---
SHIFT CHANGE REPORT, PT SLEEPING BUT AROUSES TO VERBAL STIMULI. ORIENTED, STATED HE THINK HE BROKE A FEVER DURING THE NIGHT HE WAS SWEATING, HE HAS NO C/O DISCOMFORT AT THIS TIME, IVF INFUSING, CALL LOPEZ IN REACH.
--- NOTE | 2020-04-24 12:15 | NUR ---
DOWN FOR PROCEDURE AFTER INFORMING HIM OF PICC ODER.
[2020-04-24] MEDS ORDERED: ERTAPENEM1 GM IM ×2 (14:19→15:22)
--- NOTE | 2020-04-24 14:47 | NUR ---
DR ALLEN CONSULTED, HE CONTACTED PT VIA VIRTUAL MODE AND DISCUSSED TREATMENT PLAN, PT STATED UNDERSTANDING.
[2020-04-24] MEDS ORDERED: BACTRIM DS1 TAB PO (15:21)
[2020-04-24 15:30] VITALS: BP 161/85
--- NOTE | 2020-04-24 16:49 | NUR ---
BLADDER SCANNED PER ORDER, PRV =0, WHEEL AND PINION INSPECTOR NOTIFIED
--- NOTE | 2020-04-24 17:21 | NUR ---
PT VERY ANGRY HE IS UNABLE TO GO HOME TODAY, RN EXPLAINED THAT SETTING UP TREATMENT PLAN TAKES DIFFERENT DEPARTMENTS AND TIME, HOWEVER IT IS HIGHLY POSSIBLE EVERYTHING WILL BE FINALISED TOMORROW.
[2020-04-24 19:00] VITALS: BP 124/79
--- NOTE | 2020-04-25 02:40 | NUR ---
LATE ENTRY FOR 04/24/20 @ 1999 PT IS DOING WELL AT THIS TIME. HE IS VERY AGITATED THAT HE WAS NOT DISCHARGED TODAY. PER REPORT CM IS WORKING ON AT HOME IV THERAPY FOR DISCHARGE, STILL PENDING. PT IS POSITIVE FOR ESBL AND ECOLI IN HIS URINE, ABT FOR MANAGEMENT. PT IS BREATHING EVEN AND UNLABORED, LUNGS CTA. SKIN IS INTACT. WILL MONITOR.
--- NOTE | 2020-04-25 02:44 | NUR ---
LATE ENTRY FOR 04/25/20 @ 0000 PT RESTING QUIETLY IN BED. NO COMPLAINTS VOICED AT THIS TIME. NO S/S OF DISTRESS. WILL MONITOR.
--- NOTE | 2020-04-25 04:22 | NUR ---
PT RESTING QUIETLY, NO COMPLAINTS VOICED AT THSI TIME. LAB UP TO THE FLOOR FOR BLOOD DRAW, PT HAS A PICC TO [facility], LABS DRAWN BY RUDOLPH HOWELL VIA PICC. PT TOLERATED WELL. WILL MONITOR
[2020-04-25 04:48] LABS: HEMATOCRIT 31.3 % (39.0-50.0); HEMOGLOBIN 9.8 g/dl (14.0-18.0); MEAN CELL VOLUME 85.5 fL CALC (80.0-100.0); MEAN CORPUSCULAR HGB 26.8 pG CALC (26.0-32.0); MEAN CORPUSCULAR HGB CONC 31.3 g/dL CAL (32.0-36.0); RED BLOOD COUNT 3.66 mill/uL (4.70-6.10); RED CELL DISTRI WIDTH 19.6 % (11.5-15.5)
[2020-04-25 04:52] VITALS: BP 130/71
[2020-04-25 05:15] LABS: ANION GAP 9 (6-22 (CALC)); BUN 11 mg/dL (8-23); BUN/CREATININE RATIO 16 (12-20 (CALC)); CARBON DIOXIDE 26 mmol/l (22-30); CHLORIDE 103 mmol/l (95-108); CREATININE 0.7 mg/dL (0.7-1.3); GFR > 60 ML/MIN (>=60 (CALC)); GFR FOR AFR.AMER. > 60 ML/MIN (>=60 (CALC)); MAGNESIUM 1.8 mg/dL (1.6-2.3); POTASSIUM 3.8 mmol/l (3.5-5.1); SODIUM 135 mmol/l (137-146)
--- NOTE | 2020-04-25 07:15 | NUR ---
REPORT RECEIVED FROM LORENZO. PT RESTING IN BED SUPINE, ALERT AND OREINTED X 3. PT IS AGITATED, BUT COOPERATIVE. DENIES PAIN. RESPIRATIONS EVEN AND UNLABORED ON ROOM AIR; LUNGS ARE CLEAR. PUPILS ARE UNEQUAL AND LEFT PUPIL FIXED DUE TO HISTORY OF EYE INJURY; NEURO EXAM IS WNL FOR PT; REPORTS LOSS OF VISION TO LEFT EYE. TRACE EDEMA TO BLE WITH WEAK PULSE TO LEFT FOOT. POC REVIEWED; PT ENCOURAGED TO VERBALIZE CONCERNS. PT VERBALIZES DISPLEASURE AT NOT BEING DISCHARGED YESTERDAY PLANNED; ALLOWED PATIENT TO EXPRESS ALL CONCERNS; PT TEARFUL ABOUT FAMILY DYNAMICS; PARTICIPATED IN THERAPEUTIC COMMUNICATION AND IS MORE PLEASANT AND TALKATIVE. SAFETY MEASURES IN PLACE. CALL LIGHT WITHIN REACH.
[2020-04-25 07:50] VITALS: BP 147/73
[2020-04-25 08:23] VITALS: BP 147/73
--- NOTE | 2020-04-25 09:00 | NUR ---
DR. DELGADO AT BEDSIDE. PT NOW SITTING UP IN BEDSIDE CHAIR.
[2020-04-25] MEDS ORDERED: ERTAPENEM1 GM IV ×2 (10:08→10:13)
--- NOTE | 2020-04-25 12:17 | NUR ---
CASE MANAGEMENT AT BEDSIDE. PT EDUCATED ON NEW IV ANTIBIOTIC INVANZ; INFORMED THAT HE WILL RECEIVE FIRST DOSE HERE AND THEN CONTINUE MEDICATION AT HOME WITH [facility]. PT STATES UNDERSTANDING.
--- NOTE | 2020-04-25 12:35 | NUR ---
INVANZ INFUSING INTO JOSELYN PICC; DRESSING IS CDI; GOOD BLOOD RETURN PRIOR TO ADMINISTRATION.
--- NOTE | 2020-04-25 13:25 | NUR ---
Discharge instructions given. Patient verbalizes understanding of same. Discharged in stable condition via Wheelchair to Home with spouse and [facility]. PICC line intact on discharge with dressing CDI. All belongings sent with pt including person items retrieved from safe.
== END 2020-04-25 13:25 | DRG 872 ==
LOC: ED 12:34 → ED-I 15:18 → ED 15:28 → MS2 15:29
PROVIDERS: Nurse Practitioner; ADMIT Internal Medicine; ATTEND Internal Medicine
PROC: 02HV33Z Insertion of Infusion Device into Superior Vena Cava, Percutaneous Approach (ICD-10-PCS; principal; 2020-04-24)
PROC: B518ZZA Fluoroscopy of Superior Vena Cava, Guidance (ICD-10-PCS; 2020-04-24)
DX: A41.51 Sepsis due to Escherichia coli [E. coli] (principal); E87.2 Acidosis; Z16.12 Extended spectrum beta lactamase (ESBL) resistance; N41.2 Abscess of prostate; N13.8 Other obstructive and reflux uropathy; N39.0 Urinary tract infection, site not specified; N40.1 Benign prostatic hyperplasia with lower urinary tract symptoms; N41.9 Inflammatory disease of prostate, unspecified; R35.0 Frequency of micturition; I10 Essential (primary) hypertension; E11.40 Type 2 diabetes mellitus with diabetic neuropathy, unspecified; E78.5 Hyperlipidemia, unspecified; M10.071 Idiopathic gout, right ankle and foot; Z95.1 Presence of aortocoronary bypass graft; Z87.891 Personal history of nicotine dependence; Z87.440 Personal history of urinary (tract) infections; Z96.652 Presence of left artificial knee joint; Z20.822 Contact with and (suspected) exposure to COVID-19
CPT/HCPCS: A9579; J1335; J1650; Q3014; Q9967

== ENCOUNTER 2021-03-27 11:47 | Emergency (ER) | payer MEDICARE ==
[~2021-03-27] VITALS: Ht 177.8 cm; Wt 95.0 kg
[~2021-03-27 11:47] MED LIST changes: +ERTAPENEM1 GM IM; +ERTAPENEM1 GM IV
[2021-03-27 13:46] LABS: HEMATOCRIT 30.2 % (39.0-50.0); HEMOGLOBIN 9.2 g/dl (14.0-18.0); IMMATURE GRANULOCYTES 0.2 % (0.0-5.0); MEAN CELL VOLUME 83.4 fL CALC (80.0-100.0); MEAN CORPUSCULAR HGB 25.4 pG CALC (26.0-32.0); MEAN CORPUSCULAR HGB CONC 30.5 g/dL CAL (32.0-36.0); NEUT# 3.94 thou/uL (1.82-7.42); RED BLOOD COUNT 3.62 mill/uL (4.70-6.10)
[2021-03-27 13:56] LABS: ALBUMIN 3.5 g/dL (3.2-5.0); ALKALINE PHOSPHATASE 162 u/l (38-126); ANION GAP 11 (6-22 (CALC)); BILIRUBIN, TOTAL 0.6 mg/dL (0.0-1.4); BUN 13 mg/dL (8-23); BUN/CREATININE RATIO 13 (12-20 (CALC)); CARBON DIOXIDE 27 mmol/l (22-30); CHLORIDE 103 mmol/l (95-108); GFR > 60 ML/MIN (>=60 (CALC)); GFR FOR AFR.AMER. > 60 ML/MIN (>=60 (CALC)); POTASSIUM 4.1 mmol/l (3.5-5.1); SGOT/AST 22 u/l (19-48); SODIUM 137 mmol/l (137-146); TOTAL PROTEIN 7.6 g/dL (6.3-8.2)
[2021-03-27] MEDS ORDERED: BACTRIM DS1 TAB PO (14:46)
[2021-03-27] MEDS ORDERED: OMNI-PAC300 MG PO (14:46)
[2021-03-27 15:12] VITALS: BP 131/68
== END 2021-03-27 15:12 | disposition home or self-care (01) ==
LOC: ED 11:47
PROVIDERS: Family Medicine
DX: L03.031 Cellulitis of right toe (principal); I10 Essential (primary) hypertension; E11.40 Type 2 diabetes mellitus with diabetic neuropathy, unspecified; E78.00 Pure hypercholesterolemia, unspecified; M10.9 Gout, unspecified; Z95.1 Presence of aortocoronary bypass graft

== ENCOUNTER 2021-08-09 10:10 | Emergency (ER) | payer MEDICARE ==
[2021-08-09] VITALS (10 sets, daily range): BP systolic 125–165; BP diastolic 59–80
[~2021-08-09] VITALS: Ht 177.8 cm; Wt 97.7 kg
[~2021-08-09 10:10] MED LIST changes: +OMNI-PAC300 MG PO
[2021-08-09 11:10] LABS: HEMATOCRIT 38.9 % (39.0-50.0); HEMOGLOBIN 12.6 g/dl (14.0-18.0); MEAN CORPUSCULAR HGB 30.2 pG CALC (26.0-32.0); MEAN CORPUSCULAR HGB CONC 32.4 g/dL CAL (32.0-36.0); NEUT# 3.98 thou/uL (1.82-7.42); RED BLOOD COUNT 4.17 mill/uL (4.70-6.10); RED CELL DISTRI WIDTH 15.5 % (11.5-15.5)
[2021-08-09 11:22] LABS: MEAN CELL VOLUME 93.3 fL CALC (80.0-100.0)
[2021-08-09 11:25] LABS: ACT PARTIAL THROMBO TIME 25.9 SECONDS (20.0-32.5); PROTHROMBIN TIME 10.4 SECONDS (9.0-12.5)
[2021-08-09 11:34] LABS: ALBUMIN 3.9 g/dL (3.2-5.0); ALKALINE PHOSPHATASE 121 u/l (38-126); ANION GAP 11 (6-22 (CALC)); BUN 22 mg/dL (8-23); BUN/CREATININE RATIO 22 (12-20 (CALC)); CARBON DIOXIDE 25 mmol/l (22-30); CHLORIDE 106 mmol/l (95-108); GFR FOR AFR.AMER. > 60 ML/MIN (>=60 (CALC)); GFR OTHER RACES > 60 ML/MIN (>=60 (CALC)); LIPASE 155 u/l (23-300); MAGNESIUM 1.9 mg/dL (1.6-2.3); POTASSIUM 3.8 mmol/l (3.5-5.1); SGOT/AST 23 u/l (19-48); SODIUM 139 mmol/l (137-146); TOTAL PROTEIN 7.3 g/dL (6.3-8.2)
[2021-08-09] MEDS ORDERED: KEFLEX500 MG PO (12:34)
== END 2021-08-09 13:05 | disposition home or self-care (01) ==
LOC: ED 10:10
DX: S61.451A Open bite of right hand, initial encounter (principal); R00.1 Bradycardia, unspecified; I10 Essential (primary) hypertension; E11.40 Type 2 diabetes mellitus with diabetic neuropathy, unspecified; E78.00 Pure hypercholesterolemia, unspecified; M10.9 Gout, unspecified; W54.0XXA Bitten by dog, initial encounter; Y92.89 Other specified places as the place of occurrence of the external cause; Z95.1 Presence of aortocoronary bypass graft

== ENCOUNTER 2021-11-26 13:40 | Inpatient (IN) | payer MEDICARE ==
[2021-11-26] VITALS (16 sets, daily range): BP systolic 56–138; BP diastolic 19–73
[~2021-11-26] VITALS: Ht 177.8 cm; Wt 96.4 kg
[~2021-11-26 13:40] MED LIST changes: +MEDDOSEPAK PO; +NORVASC5 M1 PO; +OMEPRAZOLE20 MG PO; +TAMSULOSIN HCL0.4 MG PO
[2021-11-26 14:17] LABS: URINE BILIRUBIN - DIPSTICK NEGATIVE (NEGATIVE); URINE BLOOD DIPSTICK TRACE-INTACT (NEGATIVE); URINE COLOR YELLOW; URINE GLUCOSE - DIPSTICK NEGATIVE (NEGATIVE); URINE KETONE NEGATIVE (NEGATIVE); URINE LEUK ESTERASE NEGATIVE (NEGATIVE); URINE NITRITE - DIPSTICK NEGATIVE (Negative); URINE PROTEIN - DIPSTICK TRACE mg/dL (NEG-TRACE); URINE SPECIFIC GRAVITY 1.025
[2021-11-26 14:21] LABS: HEMATOCRIT 38.5 % (39.0-50.0); HEMOGLOBIN 13.1 g/dl (14.0-18.0); IMMATURE GRANULOCYTES 0.2 % (0.0-5.0); MEAN CELL VOLUME 93.2 fL CALC (80.0-100.0); MEAN CORPUSCULAR HGB 31.7 pG CALC (26.0-32.0); NEUT# 13.79 thou/uL (1.82-7.42); RED BLOOD COUNT 4.13 mill/uL (4.70-6.10); RED CELL DISTRI WIDTH 13.2 % (11.5-15.5)
[2021-11-26 14:40] LABS: ALBUMIN 3.6 g/dL (3.2-5.0); ALKALINE PHOSPHATASE 136 u/l (38-126); ANION GAP 17 (6-22 (CALC)); BUN 35 mg/dL (8-23); BUN/CREATININE RATIO 29 (12-20 (CALC)); CARBON DIOXIDE 25 mmol/l (22-30); CHLORIDE 92 mmol/l (95-108); CREATININE 1.2 mg/dL (0.7-1.3); GFR FOR AFR.AMER. > 60 ML/MIN (>=60 (CALC)); GFR OTHER RACES 58 ML/MIN (>=60 (CALC)); POTASSIUM 3.6 mmol/l (3.5-5.1); SGOT/AST 53 u/l (19-48); SODIUM 131 mmol/l (137-146); TOTAL PROTEIN 7.3 g/dL (6.3-8.2)
[2021-11-26] MEDS ORDERED: OZEMPIC2 MG/1.5 M SC (15:50)
[2021-11-26] MEDS ORDERED: NORVASC PO (15:50)
[2021-11-26] MEDS ORDERED: MAXZIDE-25MG1 COMBO PO (15:51)
[2021-11-26] MEDS ORDERED: GABAPENTIN400 MG PO (15:51)
[2021-11-26] MEDS ORDERED: ATORVASTATIN CA80 MG PO (15:51)
[2021-11-26] MEDS ORDERED: LOPRESSOR25 MG PO (15:51)
[2021-11-26] MEDS ORDERED: BENAZEPRIL10 M1 PO (15:52)
[2021-11-27 04:08] VITALS: BP 128/64
[2021-11-27 06:20] LABS: HEMATOCRIT 39.5 % (39.0-50.0); HEMOGLOBIN 13.8 g/dl (14.0-18.0); MEAN CELL VOLUME 92.5 fL CALC (80.0-100.0); MEAN CORPUSCULAR HGB 32.3 pG CALC (26.0-32.0); MEAN CORPUSCULAR HGB CONC 34.9 g/dL CAL (32.0-36.0); RED BLOOD COUNT 4.27 mill/uL (4.70-6.10); RED CELL DISTRI WIDTH 13.2 % (11.5-15.5)
[2021-11-27 06:32] LABS: ANION GAP 14 (6-22 (CALC)); BUN 37 mg/dL (8-23); BUN/CREATININE RATIO 34 (12-20 (CALC)); CARBON DIOXIDE 28 mmol/l (22-30); CHLORIDE 94 mmol/l (95-108); CREATININE 1.1 mg/dL (0.7-1.3); GFR FOR AFR.AMER. > 60 ML/MIN (>=60 (CALC)); GFR OTHER RACES > 60 ML/MIN (>=60 (CALC)); MAGNESIUM 2.3 mg/dL (1.6-2.3); POTASSIUM 3.5 mmol/l (3.5-5.1); SODIUM 133 mmol/l (137-146)
[2021-11-27 06:47] VITALS: BP 130/53
[2021-11-27 16:00] VITALS: BP 140/64
[2021-11-27 19:00] VITALS: BP 168/74
[2021-11-27 19:24] VITALS: BP 168/74
[2021-11-28 04:23] VITALS: BP 152/70
[2021-11-28 05:18] LABS: HEMATOCRIT 42.7 % (39.0-50.0); HEMOGLOBIN 14.5 g/dl (14.0-18.0); IMMATURE GRANULOCYTES 0.7 % (0.0-5.0); MEAN CORPUSCULAR HGB 31.6 pG CALC (26.0-32.0); NEUT# 11.3 thou/uL (1.82-7.42); RED BLOOD COUNT 4.59 mill/uL (4.70-6.10); RED CELL DISTRI WIDTH 13.5 % (11.5-15.5)
[2021-11-28 05:33] LABS: ANION GAP 17 (6-22 (CALC)); BUN 25 mg/dL (8-23); BUN/CREATININE RATIO 25 (12-20 (CALC)); CARBON DIOXIDE 27 mmol/l (22-30); CHLORIDE 95 mmol/l (95-108); GFR FOR AFR.AMER. > 60 ML/MIN (>=60 (CALC)); GFR OTHER RACES > 60 ML/MIN (>=60 (CALC)); POTASSIUM 4.1 mmol/l (3.5-5.1); SODIUM 135 mmol/l (137-146)
[2021-11-28 06:27] VITALS: BP 145/67
[2021-11-28 07:31] VITALS: BP 145/67
[2021-11-28 14:20] VITALS: BP 124/59
[2021-11-28 14:42] VITALS: BP 124/59
[2021-11-28 18:36] VITALS: BP 112/61
[2021-11-29 04:00] VITALS: BP 135/62
[2021-11-29 05:25] LABS: HEMATOCRIT 39.4 % (39.0-50.0); HEMOGLOBIN 13.4 g/dl (14.0-18.0); IMMATURE GRANULOCYTES 0.7 % (0.0-5.0); MEAN CELL VOLUME 92.3 fL CALC (80.0-100.0); MEAN CORPUSCULAR HGB 31.4 pG CALC (26.0-32.0); NEUT# 10.33 thou/uL (1.82-7.42); RED BLOOD COUNT 4.27 mill/uL (4.70-6.10); RED CELL DISTRI WIDTH 13.7 % (11.5-15.5)
[2021-11-29 05:41] LABS: ANION GAP 15 (6-22 (CALC)); BUN 24 mg/dL (8-23); BUN/CREATININE RATIO 28 (12-20 (CALC)); CARBON DIOXIDE 24 mmol/l (22-30); CHLORIDE 98 mmol/l (95-108); CREATININE 0.8 mg/dL (0.7-1.3); GFR FOR AFR.AMER. > 60 ML/MIN (>=60 (CALC)); GFR OTHER RACES > 60 ML/MIN (>=60 (CALC)); MAGNESIUM 2.2 mg/dL (1.6-2.3); POTASSIUM 3.4 mmol/l (3.5-5.1); SODIUM 133 mmol/l (137-146)
[2021-11-29 07:00] VITALS: BP 144/72
[2021-11-29 07:02] VITALS: BP 144/72
[2021-11-29 16:27] VITALS: BP 129/68
[2021-11-29 18:39] VITALS: BP 93/65
[2021-11-29 19:00] VITALS: BP 93/65
[2021-11-30 04:33] VITALS: BP 143/73
[2021-11-30 05:59] LABS: HEMATOCRIT 42.8 % (39.0-50.0); HEMOGLOBIN 14.5 g/dl (14.0-18.0); IMMATURE GRANULOCYTES 1.8 % (0.0-5.0); MEAN CELL VOLUME 93.9 fL CALC (80.0-100.0); MEAN CORPUSCULAR HGB 31.8 pG CALC (26.0-32.0); MEAN CORPUSCULAR HGB CONC 33.9 g/dL CAL (32.0-36.0); NEUT# 10.95 thou/uL (1.82-7.42); RED BLOOD COUNT 4.56 mill/uL (4.70-6.10); RED CELL DISTRI WIDTH 13.8 % (11.5-15.5)
[2021-11-30 06:24] LABS: ANION GAP 16 (6-22 (CALC)); BUN 23 mg/dL (8-23); BUN/CREATININE RATIO 27 (12-20 (CALC)); CARBON DIOXIDE 26 mmol/l (22-30); CHLORIDE 96 mmol/l (95-108); CREATININE 0.9 mg/dL (0.7-1.3); GFR FOR AFR.AMER. > 60 ML/MIN (>=60 (CALC)); GFR OTHER RACES > 60 ML/MIN (>=60 (CALC)); POTASSIUM 3.5 mmol/l (3.5-5.1); SODIUM 135 mmol/l (137-146)
[2021-11-30 06:33] VITALS: BP 141/79
[2021-11-30 07:58] VITALS: BP 146/76
[2021-11-30 11:18] VITALS: BP 125/62
[2021-11-30 16:32] VITALS: BP 117/62
== END 2021-11-30 16:15 | disposition short-term general hospital (02) | DRG 603 ==
LOC: ED 13:40 → ED-I 15:00 → ED 15:30 → MS2 15:31
PROVIDERS: Emergency Medicine; Internal Medicine; Nurse Practitioner; ADMIT Internal Medicine; ATTEND Internal Medicine
PROC: 0SJD3ZZ Inspection of Left Knee Joint, Percutaneous Approach (ICD-10-PCS; principal; 2021-11-26)
DX: L02.11 Cutaneous abscess of neck (principal); R78.81 Bacteremia; I50.22 Chronic systolic (congestive) heart failure; E87.1 Hypo-osmolality and hyponatremia; I77.1 Stricture of artery; I11.0 Hypertensive heart disease with heart failure; E11.40 Type 2 diabetes mellitus with diabetic neuropathy, unspecified; I25.10 Atherosclerotic heart disease of native coronary artery without angina pectoris; E78.00 Pure hypercholesterolemia, unspecified; M25.462 Effusion, left knee; M10.9 Gout, unspecified; B95.61 Methicillin susceptible Staphylococcus aureus infection as the cause of diseases classified elsewhere; Z95.1 Presence of aortocoronary bypass graft; Z87.891 Personal history of nicotine dependence; Z96.652 Presence of left artificial knee joint; Z96.611 Presence of right artificial shoulder joint
CPT/HCPCS: J1650; Q9967

== ENCOUNTER 2021-12-04 19:10 | Inpatient (IN) | payer MEDICARE ==
[~2021-12-04] VITALS: Ht 177.8 cm; Wt 96.3 kg
[~2021-12-04 19:10] MED LIST changes: +BENAZEPRIL10 M1 PO; +GABAPENTIN400 MG PO; +NORVASC PO; +OZEMPIC2 MG/1.5 M SC
--- NOTE | 2021-12-05 07:40 | NUR ---
PT RESTING IN LOW FOWLERS POSITION. A/OX3 ASSESSMENT AND VS COMPLETED. PT HEART RHYTHM NORMAL . RESPIRATIONS UNLABORED. BOWEL SOUNDS ACTIVE. PT IV SITE NOTED MIDLINE NOTED. PT DRESSING RECENTLY CHANGED. DRAINAGE NOTED. DRESSING TO BE WET TO DRY DRESSING QSHIFT. PT DNEIES ADDITIONAL NEEDS AT THE TIME
[2021-12-05] MEDS ORDERED: BENAZEPRIL10 M1 PO (09:38)
[2021-12-05] MEDS ORDERED: GABAPENTIN400 MG PO (09:43)
[2021-12-05] MEDS ORDERED: FERROUS SULF325 M3 PO (09:47)
[2021-12-05] MEDS ORDERED: SENNA-TABS8.6 MG PO (09:48)
[2021-12-05 09:50] LABS: ALBUMIN 2.3 g/dL (3.2-5.0); ALKALINE PHOSPHATASE 117 u/l (38-126); ANION GAP 13 (6-22 (CALC)); BILIRUBIN, TOTAL 0.6 mg/dL (0.0-1.4); BUN 17 mg/dL (8-23); BUN/CREATININE RATIO 21 (12-20 (CALC)); CARBON DIOXIDE 25 mmol/l (22-30); CHLORIDE 101 mmol/l (95-108); CREATININE 0.8 mg/dL (0.7-1.3); GFR FOR AFR.AMER. > 60 ML/MIN (>=60 (CALC)); GFR OTHER RACES > 60 ML/MIN (>=60 (CALC)); POTASSIUM 5.1 mmol/l (3.5-5.1); SGOT/AST 42 u/l (19-48); SODIUM 134 mmol/l (137-146); TOTAL PROTEIN 5.4 g/dL (6.3-8.2)
[2021-12-05] MEDS ORDERED: INSULIN GLAR100 UNIT SC (09:50)
[2021-12-05 09:51] LABS: HEMATOCRIT 34.5 % (39.0-50.0); HEMOGLOBIN 11.6 g/dl (14.0-18.0); IMMATURE GRANULOCYTES 2.2 % (0.0-5.0); MAGNESIUM 2.2 mg/dL (1.6-2.3); MEAN CELL VOLUME 95.3 fL CALC (80.0-100.0); MEAN CORPUSCULAR HGB CONC 33.6 g/dL CAL (32.0-36.0); RED BLOOD COUNT 3.62 mill/uL (4.70-6.10); RED CELL DISTRI WIDTH 14.3 % (11.5-15.5)
[2021-12-05 09:52] LABS: NEUT# 5.88 thou/uL (1.82-7.42)
[2021-12-05] MEDS ORDERED: HEPARIN SO5000 UNIT1 SC (09:53)
[2021-12-05] MEDS ORDERED: SEMGLEE SC (10:12)
[2021-12-05] MEDS ORDERED: HUMALOG100 UNIT SC (10:14)
[2021-12-05] MEDS ORDERED: CEFAZOLIN500 MG IV (10:59)
--- NOTE | 2021-12-05 11:37 | NUR ---
PT TRANSPORTED TO RADIOLOGY TRAUMA ROOM FOR PICCLINE .
[2021-12-05 14:27] VITALS: BP 143/50
--- NOTE | 2021-12-05 15:32 | NUR ---
PT WOUND CARE COMPLETED. AT 1130. WET TO DRY DRESSING PACKED.
--- NOTE | 2021-12-05 16:04 | NUR ---
PT NEED OF UA TO BE COLLECTED, CULTURE OF SURGICAL NECK TO BE COLLECTED, COVID SWAB TO BE ADMINISTERED.
[2021-12-05 16:55] LABS: URINE BILIRUBIN - DIPSTICK NEGATIVE (NEGATIVE); URINE BLOOD DIPSTICK NEGATIVE (NEGATIVE); URINE CLARITY CLEAR; URINE COLOR YELLOW; URINE GLUCOSE - DIPSTICK NEGATIVE (NEGATIVE); URINE KETONE NEGATIVE (NEGATIVE); URINE LEUK ESTERASE NEGATIVE (Negative); URINE NITRITE - DIPSTICK NEGATIVE (Negative); URINE PH 7.5 (4.5-8.0); URINE PROTEIN - DIPSTICK NEGATIVE (NEG-TRACE); URINE SPECIFIC GRAVITY 1.015
[2021-12-05 18:54] VITALS: BP 139/73
--- NOTE | 2021-12-05 20:45 | NUR ---
PT ALERT, ORIENTED X3, ABLE TO MAKE NEEDS KNOWN. HR RRR, PT DENIES CHEST PAIN, PRESSURE. pT STATES PAIN 10/10 TO SURGICAL SITE, MEDICATION GIVEN WHEN DUE. LUNG SOUNDS CLEAR, PT DENIES SOB, DIFFICULTY BREATHING, ABD SOFT, NONTENDER, BT PRESENT, PT DENIES NAUSEA. PT ABLE TO MOVE ALL EXTREMETIES. DRESSING TO RU CHEST IS INTACT, PT DECLINES TO HAVE DRESSING CHANGED AT THIS TIME. PT STATES HE WILL ALLOW IT RAJESH CHANGED IN THE MORNING. PT ABLE TO USE URINAL. PT RESTING IN NO SIGN OF DISCOMFORT, WILL CONTINUE TO MONITOR.
[2021-12-06 04:08] VITALS: BP 151/72
[2021-12-06 04:57] LABS: HEMOGLOBIN 11.9 g/dl (14.0-18.0); IMMATURE GRANULOCYTES 1.7 % (0.0-5.0); MEAN CORPUSCULAR HGB 31.4 pG CALC (26.0-32.0); MEAN CORPUSCULAR HGB CONC 33.1 g/dL CAL (32.0-36.0); NEUT# 5.13 thou/uL (1.82-7.42); RED BLOOD COUNT 3.79 mill/uL (4.70-6.10)
[2021-12-06 05:15] LABS: ANION GAP 12 (6-22 (CALC)); BUN 18 mg/dL (8-23); BUN/CREATININE RATIO 23 (12-20 (CALC)); CARBON DIOXIDE 26 mmol/l (22-30); CHLORIDE 100 mmol/l (95-108); CREATININE 0.8 mg/dL (0.7-1.3); GFR FOR AFR.AMER. > 60 ML/MIN (>=60 (CALC)); GFR OTHER RACES > 60 ML/MIN (>=60 (CALC)); POTASSIUM 4.4 mmol/l (3.5-5.1); SODIUM 133 mmol/l (137-146)
--- NOTE | 2021-12-06 05:35 | NUR ---
DRESSING TO RU CHEST CHANGED. PT PREMEDICATED PRIOR TO DRESSING CHANGE. TWO AREAS NOTED. PT HAS RODNEY DRAIN DRAINING YELLOW DRAINAGE, NO ODOR NOTED. WET TO DRY DRESSING COMPLETED FOR AREA UNDER NECK, MEASUREING 3 CM BY 6 CM. PT TOLERATED WELL. PT RESTING IN NO SIGN OF DISCOMFORT. WILL CONTINUE TO MONITOR.
[2021-12-06 06:39] VITALS: BP 151/72
--- NOTE | 2021-12-06 07:48 | NUR ---
PT RESTING IN HIGH FOWLERS POSITION. ASSESSMENT COMPLETED. PICC LINE NOTED. PT DRESSING CDI. ALL SAFETY PRECAUTIONS IN [place] WITH CALL LIGHT IN REACH ALL SAFETY PRECAUTIONS IN PLACE WITH CALL LIGHT IN REACH.
[2021-12-06 11:17] VITALS: BP 142/77
--- NOTE | 2021-12-06 12:05 | NUR ---
PT C/O MINOR PAIN DENIES PAIN MEDICATION. ALL SAFETY PRECAUTIONS IN PLACE.
--- NOTE | 2021-12-06 15:52 | NUR ---
PT DRESSING CHANGE COMPLETED. PICC LINE FLUSHED WITH HEPARIN.
--- NOTE | 2021-12-06 17:35 | NUR ---
PT RECHECKED BS GLUCOSE METER NOT READING PREVIOUD BS.
[2021-12-06 19:00] VITALS: BP 139/60
[2021-12-06 19:08] VITALS: BP 139/60
--- NOTE | 2021-12-06 20:30 | NUR ---
PT LYING ON BED: A&O X3. ASSESSMENT COMPLETED. EVEN AND UNLABORED RESPIRATIONS; CLEAR LUNG SOUNDS. TELEMETRY IN PLACE. PICCLINE TO LF UPPER ARM, HEALTHY AND PATENT. ACTIVE BOWEL SOUNDS X4 QUADRANTS. DRESSING TO THROAT: CDI. SAFETY PRECAUTIONS IN PLACE WITH CALL LIGHT IN REACH.
--- NOTE | 2021-12-07 | NUR ---
PT C/O PAIN ON SURGICAL INCISION, LEVEL 9/10; ADMINISTERED PAIN MED PER EMAR. PICCLINE FLUSHED WITH HEPARIN PER PROTOCOL. SAFETY PRECAUTIONS IN PLACE WITH CALL LIGHT IN REACH.
[2021-12-07 04:00] VITALS: BP 144/70
--- NOTE | 2021-12-07 04:17 | NUR ---
BLOOD DRAWN PROM PICCLINE AT THIS TIME AND SEND TO LAB, PT TOLERATED WELL. PT DRESSING CHANGED TO THROAT SURGICAL INCISION AT THIS TIME, PT TOLERATED WELL. SAFETY PRECAUTIONS INPLACE WITH CALL LIGHT IN PLACE.
[2021-12-07 04:45] VITALS: BP 144/70
[2021-12-07 05:15] LABS: HEMATOCRIT 34.7 % (39.0-50.0); HEMOGLOBIN 11.5 g/dl (14.0-18.0); MEAN CELL VOLUME 95.1 fL CALC (80.0-100.0); MEAN CORPUSCULAR HGB 31.5 pG CALC (26.0-32.0); MEAN CORPUSCULAR HGB CONC 33.1 g/dL CAL (32.0-36.0); RED BLOOD COUNT 3.65 mill/uL (4.70-6.10)
[2021-12-07 05:30] LABS: ALBUMIN 2.5 g/dL (3.2-5.0); ALKALINE PHOSPHATASE 139 u/l (38-126); ANION GAP 13 (6-22 (CALC)); BUN 20 mg/dL (8-23); BUN/CREATININE RATIO 22 (12-20 (CALC)); CARBON DIOXIDE 25 mmol/l (22-30); CHLORIDE 101 mmol/l (95-108); CREATININE 0.9 mg/dL (0.7-1.3); GFR FOR AFR.AMER. > 60 ML/MIN (>=60 (CALC)); GFR OTHER RACES > 60 ML/MIN (>=60 (CALC)); MAGNESIUM 1.9 mg/dL (1.6-2.3); POTASSIUM 4.8 mmol/l (3.5-5.1); SGOT/AST 29 u/l (19-48); SODIUM 134 mmol/l (137-146); TOTAL PROTEIN 5.6 g/dL (6.3-8.2)
[2021-12-07 05:31] LABS: BILIRUBIN, TOTAL 0.3 mg/dL (0.0-1.4)
--- NOTE | 2021-12-07 07:39 | NUR ---
PT RESTING COMFORTABLY IN BED. VITAL SIGNS STABLE. NO NEEDS AT THIS TIME.
[2021-12-07 07:48] VITALS: BP 148/74
--- NOTE | 2021-12-07 11:54 | NUR ---
PT RESTING COMFORTABLY IN BED. VITAL SIGNS STABLE. NO NEEDS AT THIS TIME.
--- NOTE | 2021-12-07 16:14 | NUR ---
PT RESTING IN BED. PAIN MED RECENTLY GIVEN. VITAL SIGNS STABLE.
[2021-12-07 16:27] VITALS: BP 148/74
[2021-12-07 18:57] VITALS: BP 133/60
--- NOTE | 2021-12-07 19:15 | NUR ---
RECIEVED REPORT FROM DAYSHIFT NURSE. PT IN BED WATCHING TV. A/O X3. BREATHING EVEN, NON LABORED ROOM AIR. PT PICC FLUSHED. PT DENIES ANY NEEDS AT THIS TIME. ALL SAFETY PRECAUTIONS IN PLACE
--- NOTE | 2021-12-07 21:00 | NUR ---
PT PUPILS UNEVEN. PT REPORTS ITS BEEN THAT WAY FOR YEARS, HIS PCP IS AWARE. LEFT PUPIL 4CM, BARELY REACTIVE, SLUGGISH BUT PT STATES CAN SEE OUT OF EYE WITH ABOUT 30% VISION. RIGHT EYE BRISK AND 2CM.
--- NOTE | 2021-12-08 | NUR ---
PT IN ROOM SLEEPING, BREATHING NON LABORED. NO SIGNS OF DISTRESS. CALL LIGHT IN REACH. EASILY AROUSIBLE. PT DENIES ANY NEEDS AT THIS TIME. ALL SAFETY PRECAUTIONS IN PLACE AT THIS TIME.
[2021-12-08 05:10] VITALS: BP 151/87
[2021-12-08 06:45] VITALS: BP 146/87
--- NOTE | 2021-12-08 07:00 | NUR ---
RECEIVE REPORT FROM RAEGAN HENDRICKSON.
[2021-12-08 08:00] VITALS: BP 146/87
--- NOTE | 2021-12-08 08:00 | NUR ---
PATIENT ALERT AND ORIENTED X3. PATIENT STABLE AT THIS TIME. PATIENT RESTING I THE CHAIR WITH EYES CLOSED. NO RESPIRATORY DISTRESS.LUNG SOUNDS CLEAR. PATIEN IS EDUCATED ABOUD MEDICATIONS AND NURSING PLAN FOR TODAY. DRESSING CHANGED TODAY. SAFETY AND FALL PRECAUTIONS IN PLACE. CALL LIGHT WITHIN IN REACH.
[2021-12-08 11:31] VITALS: BP 146/87
[2021-12-08] MEDS ORDERED: CEFAZOLIN500 MG IV (11:36)
--- NOTE | 2021-12-08 12:01 | NUR ---
PATIENT RESTING IN BED ACCOMPANIE BY FAMILY
[2021-12-08 15:32] VITALS: BP 110/62
--- NOTE | 2021-12-08 19:05 | NUR ---
RECIEVED REPORT ON PT AND EVENTS OF THE DAY. PT IN ROOM WITH AND DAUGHTER. PT IN BED, A/O X3, FACIAL STRUCTURE EVEN, SPEECH CLEAR. IV SITE PATENT,SALINE LOCKED. PT DENIES ANY NEEDS AT THIS TIME. ALL SAFETY PRECAUTIONS IN PLACE AT THIS TIME
[2021-12-08 19:51] VITALS: BP 113/54
--- NOTE | 2021-12-09 | NUR ---
PT SLEEPING IN BED, SUPINE POSITION. BREATHING REMAINS THE SAME. EASILY ARROUSIBLE WITH CLEAR SPEECH. PT DENIES ANY NEEDS AT THIS TIME. ALL SAFETY PRECAUTIONS IN PLACE AT THIS TIME.
--- NOTE | 2021-12-09 03:56 | NUR ---
PT IN SLEEPING, BREATHING REMAINS THE SAME. EASILY AROUSIBLE, A/O X3. PT DENIES ANY NEEDS AT THIS TIME. ALL SAFETY PRECAUTIONS IN PLACE AT THIS TIME.
[2021-12-09 04:20] VITALS: BP 122/61
[2021-12-09 05:40] LABS: HEMATOCRIT 32.7 % (39.0-50.0); HEMOGLOBIN 10.8 g/dl (14.0-18.0); IMMATURE GRANULOCYTES 0.5 % (0.0-5.0); MEAN CELL VOLUME 95.3 fL CALC (80.0-100.0); MEAN CORPUSCULAR HGB 31.5 pG CALC (26.0-32.0); NEUT# 5.6 thou/uL (1.82-7.42); RED BLOOD COUNT 3.43 mill/uL (4.70-6.10)
[2021-12-09 05:56] LABS: ALBUMIN 2.8 g/dL (3.2-5.0); ALKALINE PHOSPHATASE 156 u/l (38-126); ANION GAP 10 (6-22 (CALC)); BUN 16 mg/dL (8-23); BUN/CREATININE RATIO 20 (12-20 (CALC)); CARBON DIOXIDE 29 mmol/l (22-30); CHLORIDE 100 mmol/l (95-108); CREATININE 0.8 mg/dL (0.7-1.3); GFR FOR AFR.AMER. > 60 ML/MIN (>=60 (CALC)); GFR OTHER RACES > 60 ML/MIN (>=60 (CALC)); MAGNESIUM 1.8 mg/dL (1.6-2.3); POTASSIUM 4.7 mmol/l (3.5-5.1); SGOT/AST 31 u/l (19-48); SODIUM 135 mmol/l (137-146); TOTAL PROTEIN 6.1 g/dL (6.3-8.2)
[2021-12-09 05:58] LABS: BILIRUBIN, TOTAL 0.5 mg/dL (0.0-1.4)
[2021-12-09 06:59] VITALS: BP 137/62
--- NOTE | 2021-12-09 07:28 | NUR ---
BEDSIDE REPORT FROM RAEGAN HENDRICKSON. PT NOTED RESTING IN BED, WAKES EASILY. A&OX4. NO APPARENT DISTRESS NOTED. RESPIRATIONS EVEN AND UNLABORED. PICC TO CYNTHIA, FLUSHED WELL. PT DENIES ANY CURRENT WANTS OR NEEDS. DRESSING TO NECK, CDI. DISCUSSED POC AND SAFETY PRECAUTIONS. PT VERBALIZED UNDERSTANDING. CALL LIGHT WITHIN REACH. WILL CONTINUE TO MONITOR.
--- NOTE | 2021-12-09 10:37 | NUR ---
PT RESTING IN BED X3 FAMILY MEMBERS AT BEDSIDE. DR. RENEE AT BEDSIDE TO DISCUSS POC.
--- NOTE | 2021-12-09 15:24 | NUR ---
PT SITTING UP AT BEDSIDE IN CHAIR. NO APPARENT DISTRESS NOTED. PT DENIES ANY PAIN OR DISCOMFORT. CALL LIGHT WITHIN REACH. WILL CONTINUE TO MONITOR.
[2021-12-09 16:16] VITALS: BP 124/56
[2021-12-09 19:03] VITALS: BP 132/63
[2021-12-09 20:00] VITALS: BP 130/60
[2021-12-10 04:11] VITALS: BP 131/57
[2021-12-10 05:09] VITALS: BP 131/57
[2021-12-10 05:33] LABS: HEMATOCRIT 36.1 % (39.0-50.0); HEMOGLOBIN 11.6 g/dl (14.0-18.0); MEAN CORPUSCULAR HGB 30.9 pG CALC (26.0-32.0); MEAN CORPUSCULAR HGB CONC 32.1 g/dL CAL (32.0-36.0); RED BLOOD COUNT 3.76 mill/uL (4.70-6.10); RED CELL DISTRI WIDTH 13.9 % (11.5-15.5)
[2021-12-10 05:58] LABS: ANION GAP 11 (6-22 (CALC)); BUN 19 mg/dL (8-23); BUN/CREATININE RATIO 22 (12-20 (CALC)); C-REACTIVE PROTEIN 6.5 mg/dL (0-0.9); CARBON DIOXIDE 28 mmol/l (22-30); CHLORIDE 101 mmol/l (95-108); CREATININE 0.9 mg/dL (0.7-1.3); GFR FOR AFR.AMER. > 60 ML/MIN (>=60 (CALC)); GFR OTHER RACES > 60 ML/MIN (>=60 (CALC)); POTASSIUM 4.2 mmol/l (3.5-5.1); SODIUM 136 mmol/l (137-146)
[2021-12-10 06:19] VITALS: BP 142/79
--- NOTE | 2021-12-10 07:21 | NUR ---
PT RESTING IN LOW FOWLERS POSITION. A/OX3 ASSESSMENT AND VS COMPLETED. PT HEART RHYTHM NORMAL . RESPIRATIONS ON ROOM AIR. PT BOWEL SOUNDS ACTIVE PT STATES BM YESTERDAY. PT ABLE TO USE WALKER. PT DENIES ADDITIONAL NEEDSAT THE TIME. DRESSING CDI. ALL SAFETY PRECAUTIONS IN PLACE.
[2021-12-10 10:58] VITALS: BP 142/79
--- NOTE | 2021-12-10 12:22 | NUR ---
PT DENIES ADDITIONAL NEEDS AT THE TIME ALL SAFETY PRECAUTIONS IN PLACE. PT PICC LINE NOT FLUSHING NO NEW ORDERS PROGRAM DEVELOPER AWARE ,CC AWARE AND MAT WORKER AWARE.
--- NOTE | 2021-12-10 14:35 | NUR ---
CALLED WOUND VAC PLACEMENT IN ON THIS PT. SPOKE TO DONALDO FOR WOUND VAC NUMBER [id number]. WAS GIVEN CONFIRMATION NUMBER [phone].
--- NOTE | 2021-12-10 16:12 | NUR ---
PT DENIES ADDITIONAL NEEDS AT THE TIME ALL SAFETY PRECAUTIONS IN PLACE.
--- NOTE | 2021-12-10 18:09 | NUR ---
PT WOUND VAC IN PLACE. RN/CC WAS ABLE TO GET BLOOD RETURN AND FLUSH PICCLINE .
--- NOTE | 2021-12-10 19:12 | NUR ---
RECIEVED BEDSIDE REPORT. PT IN BED LAYING SUPINE. PT A/O X3. NO SIGNS OF DISTRESS. PT DENIES ANY NEEDS, NO QUESTIONS AT THIS TIME. ALL SAFETY PRECAUTIONS IN PLACE AT THIS TIME.
[2021-12-10 19:22] VITALS: BP 149/69
--- NOTE | 2021-12-11 | NUR ---
PT SLEEPING, EASILY AROUSIBLE. NO SIGNS OF DISTRESS OR DISCOMFORT. BREATHING REMAINS THE SAME. PT DENIES ANY NEEDS AT THIS TIME. ALL SAFETY PRECAUTIONS IN PLACE AT THIS TIME.
[2021-12-11 04:22] VITALS: BP 132/59
--- NOTE | 2021-12-11 04:26 | NUR ---
PT REMAINS THE SAME, NO SIGNS OF DISCOMFORT. BREATHING EVEN AND NON LABORED. URINAL EMPTIED, YELLOW URINE. PT DENIES ANY NEEDS AT THIS TIME. ALL SAFETY PRECAUTIONS IN PLACE AT THIS TIME.
[2021-12-11 06:46] VITALS: BP 148/61
--- NOTE | 2021-12-11 07:28 | NUR ---
PT RESTING IN LOW FOWLERS POSITION . ASSESSMENT AND VS COMPLETED. HEART RHYHTM NORM. BOWEL SOUNDS ACTIVE. RESPIRATIONS ON ROOM AIR. PICC LINE NOTED. PT WOUND VAC NOTED IN PLACE. PT RODNEY DRESSING IN PLACE ALL SAFETY PRECAUTIONS IN PLACE WITH CALL LIGHT IN REACH.
--- NOTE | 2021-12-11 12:44 | NUR ---
DRESSING COMPLETED. FOR PT. PT DENIED ADDITIONAL NEEDS INFECTIOUS DISEASE FOLLOW UP TO BE DONE.
--- NOTE | 2021-12-11 13:00 | NUR ---
PT WOUND CARE PER GATE MANAGER FOR RODNEY DAILY PRN.
[2021-12-11 14:27] VITALS: BP 141/61
--- NOTE | 2021-12-11 16:08 | NUR ---
PT DENIES ADDITIONAL NEEDS AT THE TIME.
[2021-12-11 19:15] VITALS: BP 130/63
--- NOTE | 2021-12-11 20:10 | NUR ---
RECEIVED REPORT FROM EMEKA BRITTON. PT RESTING ON BED LOW FOWLERS: A&O X3. EVEN AND UNLABORED RESPIRATIONS; CLEAR LUNG SOUNDS UPON AUSCULTATION. DOUBLE LUMEN PICCLINE TO LF UPPER ARM, HEALTHY AND PATENT. RODNEY DRESSING IN PLACE: CDI. WOUND VAC SET TO [address] WITH SEROSANGUINEOUS DRAINAGE: DRESSING CDI. MO HOSE STOCKINGS IN PLACE. SANJEEV WRAPS NOTED TO RT ARM. SAFETY PRECAUTIONS IN PLACE WITH CALL LIGHT IN REACH.
--- NOTE | 2021-12-11 22:40 | NUR ---
PT C/O PAIN ON THROAT INCISION, LEVEL 7/10; ADMINISTERED PAIN MED PER EMAR. SAFETY PRECAUTIONS IN PLACE WITH CALL LIGHT IN REACH.
[2021-12-12] VITALS (7 sets, daily range): BP systolic 100–144; BP diastolic 52–65
--- NOTE | 2021-12-12 00:10 | NUR ---
PT RESTING WITH EYES CLOSED. NO DISTRESS OR PAIN NOTED. WOUND VAC SET TO [address] RODNEY DRESSING: CDI. NO NEEDS AT THE TIME. SAFETY PRECAUTIONS IN PLACE WITH CALL LIGHT IN REACH.
--- NOTE | 2021-12-12 04:00 | NUR ---
PT ON BED. NO DISTRESS OR PAIN NOTED. RODNEY DRAIN DRESSING CHANGED: CDI. WOUND VAC @ [address] MO HOSE STOCKINGS IN PLACE. DOUBLE LUMEN PICC HEALTHY AND PATENT. SAFETY PECAUTIONS IN PLACE WITH CALL LIGHT IN REACH.
--- NOTE | 2021-12-12 20:15 | NUR ---
RECEIVED REPORT FROM RUDOLPH HEADLEY. PT SITTING ON RECLINER: A&O X3. EVEN AND UNLABORED RESPIRATIONS; CLEAR LUNG SOUNDS UPON AUSCULTATION. ACTIVE BOWEL SOUNDS X4 QUADRANTS. DOUBLE LUMEN PICC NOTED TO LEFT UPPER ARM, HEALTHY AND PATENT. RODNEY DRAIN TO RT NECK: DRESSING CDI. WOUND VAC TO [address] WITH SCANT SEROSANGUINEOUS DRAIN. MO HOSE IN PLACE. SAFETY PRECAUTIOSN IN PLACE WITH CALL LIGHT IN REACH.
--- NOTE | 2021-12-13 00:15 | NUR ---
PT RESTING WITH EYES CLOSED. NO DISTRESS OR PAIN NOTED. WOUND VAC SET TO [address] SAFETY PRECAUTIONS IN PLACE WITH CALL LIGHT IN REACH.
[2021-12-13 05:02] VITALS: BP 136/69
[2021-12-13 05:29] LABS: HEMOGLOBIN 10.6 g/dl (14.0-18.0); MEAN CORPUSCULAR HGB 31.5 pG CALC (26.0-32.0); MEAN CORPUSCULAR HGB CONC 33.1 g/dL CAL (32.0-36.0); RED BLOOD COUNT 3.37 mill/uL (4.70-6.10); RED CELL DISTRI WIDTH 13.6 % (11.5-15.5)
--- NOTE | 2021-12-13 05:30 | NUR ---
PT LYING ON BED. CHANGED DRESSING TO RT SIDE OF NECK; CDI. WOUND VAC SET TO 125 MM HG WITH SCANT AMOUNT OF DRAINAGE. PT C/O PAIN ON THROAT INCISION, LEVEL 9/10; ADMINISTERED PAIN MED PER EMAR. SAFETY PRECAUTIONS IN PLACE WITH CALL LIGHT IN REACH.
[2021-12-13 05:48] LABS: ANION GAP 9 (6-22 (CALC)); BUN 22 mg/dL (8-23); BUN/CREATININE RATIO 25 (12-20 (CALC)); CARBON DIOXIDE 29 mmol/l (22-30); CHLORIDE 102 mmol/l (95-108); CREATININE 0.9 mg/dL (0.7-1.3); GFR FOR AFR.AMER. > 60 ML/MIN (>=60 (CALC)); GFR OTHER RACES > 60 ML/MIN (>=60 (CALC)); POTASSIUM 4.5 mmol/l (3.5-5.1); SODIUM 134 mmol/l (137-146)
[2021-12-13 06:24] VITALS: BP 104/43
--- NOTE | 2021-12-13 08:45 | NUR ---
PT SITTING UP IN CHAIR. FINISHED BREAKFAST. VITAL SIGNS STABLE NO FURTHER NEEDS AT THIS TIME.
--- NOTE | 2021-12-13 12:00 | NUR ---
PT RESTING IN BED. VITAL SIGNS STABLE. NO NEEDS AT THIS TIME.
[2021-12-13 14:41] VITALS: BP 130/63
--- NOTE | 2021-12-13 16:08 | NUR ---
PT WALKED WITH PT. AND DAUGHTER ARE IN ROOM. PT RESTING COMFORTABLY.
[2021-12-13 18:42] VITALS: BP 141/62
[2021-12-13 19:01] VITALS: BP 141/62
[2021-12-14] VITALS (8 sets, daily range): BP systolic 124–147; BP diastolic 51–67
--- NOTE | 2021-12-14 01:38 | NUR ---
PT ALERT, ORIENTED, ABLE TO MAKE NEEDS KNOWN. HR-RRR, PT DENIES CHEST PAIN, PRESSURE. NO EDEMA NOTED. LUNG SOUNDS CLEAR, PT DENIES SOB, DIFFICULTY BREATHING. ABD SOFT, NONTENDER, BT PRESENT, PT DENIES NAUSEA. CMS INTACT. PT STATES PAIN CONTROLLED WITH PRN PAIN MEDICATION. WOUND VAC IN PLACE, SET TO 125MM CONTINUOUS. PT RESTING IN BED IN NO SIGN OF DISCOMFORT. WILL CONTINUE TO MONITOR.
--- NOTE | 2021-12-14 04:24 | NUR ---
Pt resting in bed in no sign of discomfort. Pt declines needs at this time. Will continue to monitor.
--- NOTE | 2021-12-14 08:11 | NUR ---
SHIFT CHANGE REPORT, PT AWAKE ALERT AND ORIENED SITTING UP AT BEDSIDE, C/O NECK PAIN @ 3/10, WOUND VAC IN PLACE TO ANTERIOR NECK, CALL LOPEZ IN REACH AND BED LOCKED IN LOWEST POSITION.
--- NOTE | 2021-12-14 12:00 | NUR ---
RESTING IN BED, SAT UP FOR MEAL, C/O RIGHT HIP PAIN, WARM COMPRESS APPLIED, [T STATED IT DID RELIEVE HIS PAIN SOME.
--- NOTE | 2021-12-14 16:00 | NUR ---
FAMILY VISITING, CONDITION STABLE, ALL NEEDS ADDRESSED
--- NOTE | 2021-12-14 19:24 | NUR ---
RODNEY DRAIN DRESSING CHANGED TODAY, VERY SMALL AMT PURULENT DRAINAGE OBSERVED ON OLD DRESSING, AREA CLEANED WITH 0.9 NS AND DSD APPLIED AND SECURED WITH PAPER TAPE.
[2021-12-15] VITALS (7 sets, daily range): BP systolic 131–151; BP diastolic 51–72
--- NOTE | 2021-12-15 00:15 | NUR ---
PT IN BED RESTING WITH EYES CLOSED BREATHING EVEN AND UNLABORED. NO S.S OF DISTRESS NOTED.
[2021-12-15 05:12] LABS: HEMATOCRIT 35.6 % (39.0-50.0); HEMOGLOBIN 11.7 g/dl (14.0-18.0); IMMATURE GRANULOCYTES 0.2 % (0.0-5.0); MEAN CELL VOLUME 94.4 fL CALC (80.0-100.0); MEAN CORPUSCULAR HGB CONC 32.9 g/dL CAL (32.0-36.0); NEUT# 3.16 thou/uL (1.82-7.42); RED BLOOD COUNT 3.77 mill/uL (4.70-6.10); RED CELL DISTRI WIDTH 13.4 % (11.5-15.5)
[2021-12-15 05:34] LABS: ANION GAP 10 (6-22 (CALC)); BUN 19 mg/dL (8-23); BUN/CREATININE RATIO 23 (12-20 (CALC)); CARBON DIOXIDE 30 mmol/l (22-30); CHLORIDE 103 mmol/l (95-108); CREATININE 0.8 mg/dL (0.7-1.3); GFR FOR AFR.AMER. > 60 ML/MIN (>=60 (CALC)); GFR OTHER RACES > 60 ML/MIN (>=60 (CALC)); MAGNESIUM 1.7 mg/dL (1.6-2.3); POTASSIUM 4.2 mmol/l (3.5-5.1); SODIUM 138 mmol/l (137-146)
--- NOTE | 2021-12-15 07:40 | NUR ---
AWAKE IN BED. C/O OF MILD LEFT SHOULDER PAIN 05/25. PT ASKED ABOUT PLACEMENT TO REHAB IN [place]. CASE MANAGEMENT AWARE. SPOKE WITH CASEMANAGEMENT "AUTH IS STILL PENDING." PT MADE AWARE.
--- NOTE | 2021-12-15 07:58 | NUR ---
PT IN BED RESTING WITH EYES CLSED BREATHING EVEN AND UNLABORED/ NO S/S OF DISTRESSNOTED. CALL LIGHT INREACH AND BED IN LOWEST POSITION.
[2021-12-15] MEDS ORDERED: LORTAB5 PO (10:47)
--- NOTE | 2021-12-15 12:20 | NUR ---
RECEIVE REPORT FROM OLIVIA GALDAMEZ. PATIENT STABLE RESTING IN BED. CONTINUE PLAN OF CARE.
--- NOTE | 2021-12-15 16:18 | NUR ---
PATIENT IS RESTING IN BED. STABLE AT THIS TIME. SAFETY AND FALL PRECAUTIONS IN PLACE. CALL LIGHT WITHIN IN REACH. HOURLY ROUNDS CONTINUE.
--- NOTE | 2021-12-15 20:21 | NUR ---
Patient resting comfortably. No signs of distress. No complaints.
[2021-12-16 04:12] VITALS: BP 120/59
--- NOTE | 2021-12-16 05:18 | NUR ---
Patient resting in bed. No signs of distress. No complaints at this time.
[2021-12-16 05:26] VITALS: BP 131/85
[2021-12-16 06:25] VITALS: BP 131/85
--- NOTE | 2021-12-16 07:43 | NUR ---
RECEIVE REPORT FROM KAYLA GALDAMEZ. PATIENT RESTING IN BED. STABLE AT THIS TIME.
[2021-12-16 08:00] VITALS: BP 131/85
--- NOTE | 2021-12-16 08:00 | NUR ---
PATIENT ALERT AND ORIENTED X3. PATIENT REFER PAIN AT THIS TIME. MEDICATIOS FOR PAIN AND MORNING IS GIVED. ASSESSMENT HEAD-TO TOE COMPLETE. NECK DRESSING IS CHANGED. PATIENT WITH ORDER TO TRANSFER TO [facility] REPORT GIVED TO SASHA YESTERDAY. PATIENT IS EDUCATED ABOUD TRANSFER TO [facility], TREATMENT AND NURSING PLAN FOR TODAY. PT REFER UNDERSTAND. PT CALL AND INFORM TO TRANSFER TODAY. CLAIRE PRICING STRATEGIST CALL THE FAMILY.
--- NOTE | 2021-12-16 09:12 | NUR ---
Discharge instructions given. Patient verbalizes understanding of same. Discharged in stable condition via Medical Transport to *Other with *Other. All belongings sent with pt. Pt is tranfer with picc line for continue treatment.
--- NOTE | 2021-12-16 09:19 | NUR ---
CALLED [facility] SPECIALIST OF WOUND VAC [id number] SPOKE TO XIANG AND WAS GIVEN CONFIRMATION NUMBER [phone].
== END 2021-12-16 09:12 | DRG 178 ==
LOC: MS2 19:10
PROVIDERS: Internal Medicine; Nurse Practitioner; ADMIT Internal Medicine; ATTEND Internal Medicine
PROC: 02HV33Z Insertion of Infusion Device into Superior Vena Cava, Percutaneous Approach (ICD-10-PCS; principal; 2021-12-05)
PROC: B518ZZA Fluoroscopy of Superior Vena Cava, Guidance (ICD-10-PCS; 2021-12-05)
PROC: 05PYX3Z Removal of Infusion Device from Upper Vein, External Approach (ICD-10-PCS; 2021-12-05)
DX: J85.3 Abscess of mediastinum (principal); I50.22 Chronic systolic (congestive) heart failure; R78.81 Bacteremia; I11.0 Hypertensive heart disease with heart failure; E11.40 Type 2 diabetes mellitus with diabetic neuropathy, unspecified; I25.118 Atherosclerotic heart disease of native coronary artery with other forms of angina pectoris; E78.00 Pure hypercholesterolemia, unspecified; M10.9 Gout, unspecified; M25.462 Effusion, left knee; Z95.1 Presence of aortocoronary bypass graft; Z87.891 Personal history of nicotine dependence; B95.61 Methicillin susceptible Staphylococcus aureus infection as the cause of diseases classified elsewhere; Z96.652 Presence of left artificial knee joint; Z96.611 Presence of right artificial shoulder joint; Z20.822 Contact with and (suspected) exposure to COVID-19
CPT/HCPCS: J2997

== ENCOUNTER 2024-03-27 12:02 | Emergency (ER) | payer MEDICARE ==
[~2024-03-27] VITALS: Ht 177.8 cm; Wt 108.0 kg
[~2024-03-27 12:02] MED LIST changes: +CEFAZOLIN500 MG IV; +FERROUS SULF325 M3 PO; +HEPARIN SO5000 UNIT1 SC; +HUMALOG100 UNIT SC; +INSULIN GLAR100 UNIT SC; +SEMGLEE SC; +SENNA-TABS8.6 MG PO
[2024-03-27 12:28] VITALS: BP 135/80
[2024-03-27 12:31] VITALS: BP 123/67
[2024-03-27 13:20] VITALS: BP 132/59
[2024-03-27 13:37] VITALS: BP 92/55
[2024-03-27 14:01] VITALS: BP 131/69
[2024-03-27 14:04] VITALS: BP 131/69
== END 2024-03-27 14:10 | disposition home or self-care (01) ==
LOC: ED 12:02
DX: S63.502A Unspecified sprain of left wrist, initial encounter (principal); S20.212A Contusion of left front wall of thorax, initial encounter; W01.0XXA Fall on same level from slipping, tripping and stumbling without subsequent striking against object, initial encounter; I10 Essential (primary) hypertension; E11.9 Type 2 diabetes mellitus without complications; Z79.4 Long term (current) use of insulin